=== PATIENT | female | born 1950 | race African-American/Black ===

== ENCOUNTER 2020-01-08 08:01 | Inpatient (IN) | payer MEDICARE, MEDICAID ==
[~2020-01-08] VITALS: Ht 172.7 cm; Wt 89.8 kg
[2020-01-08] MEDS ORDERED: EZET10TA13 PO (08:11)
[2020-01-08] MEDS ORDERED: ASPI-1497 PO (08:11)
[2020-01-08] MEDS ORDERED: RAMI10CA68 PO (08:11)
[2020-01-08] MEDS ORDERED: CHOL40002 PO (08:11)
[2020-01-08] MEDS ORDERED: FERR-71 PO (08:11)
[2020-01-08] MEDS ORDERED: AMLO10TA80 PO (08:11)
[2020-01-08] MEDS ORDERED: PRAV20TA57 PO (08:11)
[2020-01-08] MEDS ORDERED: PROPOFOL 10MG/ML 100ML 100 ML IV ONE (08:15)
[2020-01-08] MEDS ORDERED: METHYLPREDNISOLONE SOD SUCC 125 MG/2 ML VIAL IV ONE (08:15)
[2020-01-08] MEDS ORDERED: DIPHENHYDRAMINE 50MG/ML VIAL IV ONE (08:15)
[2020-01-08] MEDS ORDERED: SUCCINYLCHOLINE CHLORIDE 200MG/10ML IV ONE (08:15)
[2020-01-08] MEDS ORDERED: FAMOTIDINE 20MG/2ML VIAL IV ONE (08:15)
[2020-01-08] MEDS ORDERED: ETOMIDATE 2MG/ML 10ML VIAL IV ONE (08:15)
[2020-01-08 08:52] LABS: BASOPHILS % 0.6 % (0.0-2.0); LYMPHOCYTES % 27.5 % (20.0-50.0); MEAN CORPUSCULAR HEMOGLOBIN 22.8 pg (28.0-32.0); MEAN CORPUSCULAR VOLUME 74.9 fL (81.0-99.0); MONOCYTES % 6.6 % (2.0-8.0); NEUTROPHILS % 64.3 % (40.0-76.0); PLATELET 357 x1000/uL (130-400); RED BLOOD CELL COUNT 2.38 mill/uL (4.2-5.4)
[2020-01-08 08:53] LABS: CHLORIDE 112 mEq/L (98-107)
[2020-01-08] MEDS ORDERED: FENTANYL CITRATE/PF 50MCG/ML 2ML VIAL IV ONE (09:00)
[2020-01-08 09:07] LABS: INR 0.9; PROTHROMBIN TIME 9.8 sec (9.6-11.0)
[2020-01-08 09:15] LABS: HEMATOCRIT. 17.8 % (36.0-48.0); HEMOGLOBIN. 5.4 g/dL (12.0-16.0)
[2020-01-08] MEDS ORDERED: FENTANYL CITRATE/PF 1,000 MCG in SODIUM CHLORIDE 0.9% 80 ML IV PRN (09:15)
[2020-01-08 10:19] LABS: BG BASE EXCESS -10.9 mmol/L (-2.0-2.0); BG CARBOXYHEMOGLOBIN 1.3 % (0.5-1.5); BG DEOXYHEMOGLOBIN 0.2 % (0.0-5.0); BG FRACTION INSPIRED OXYGEN 100; BG HCO3 ACT 15.7 mmol/L (22.0-26.0); BG METHEMOGLOBIN 0.2 % (0.0-1.5); BG OXYGEN SATURATION 99.8 % (92.0-98.5); BG OXYHEMOGLOBIN 98.3 % (94.0-97.0); BG PCO2 38.5 mmHg (35.0-45.0); BG PH 7.227 (7.350-7.450); BG PO2 377.9 mmHg (75.0-100.0); BG SAMPLE SITE RIGHT BRACHIAL; BG TIDAL VOLUME(mL) 500 mL; BG TOTAL HEMOGLOBIN 4.8 g/dL (12.0-18.0); BG VENT MODE VENT - A/C; BG VENT RATE 12 set
[2020-01-08] MEDS ORDERED: MIDAZOLAM HCL 50 MG in DEXTROSE 5% WATER 40 ML IV ONE (10:30)
[2020-01-08 12:19] LABS: CLARITY URINE CLEAR (CLEAR); KETONES URINE NEGATIVE (NEGATIVE); LEUKOCYTE ESTERASE URINE NEGATIVE (NEGATIVE); NITRITE URINE NEGATIVE (NEGATIVE); OCCULT BLOOD URINE TRACE (NEGATIVE); PH URINE 5.5 (4.5-8.0); PROTEIN URINE 1+ (NEGATIVE); SPECIFIC GRAVITY URINE 1.007 (1.005-1.030); UROBILINOGEN URINE 0.2 E.U./dL (0.2-1.0)
[2020-01-08 12:20] LABS: COLOR URINE PALE YELLOW (YELLOW)
[2020-01-08] MEDS ORDERED: ONDANSETRON HCL 4MG/2ML INJ IV PRN (17:00)
[2020-01-08 17:31] LABS: BG BASE EXCESS -10.7 mmol/L (-2.0-2.0); BG CARBOXYHEMOGLOBIN 0.2 % (0.5-1.5); BG DEOXYHEMOGLOBIN 0.7 % (0.0-5.0); BG FRACTION INSPIRED OXYGEN 60; BG HCO3 ACT 16.3 mmol/L (22.0-26.0); BG METHEMOGLOBIN 0.3 % (0.0-1.5); BG OXYGEN SATURATION 99.3 % (92.0-98.5); BG OXYHEMOGLOBIN 98.8 % (94.0-97.0); BG PCO2 41.9 mmHg (35.0-45.0); BG PH 7.207 (7.350-7.450); BG PO2 171.6 mmHg (75.0-100.0); BG SAMPLE SITE RIGHT BRACHIAL; BG TIDAL VOLUME(mL) 500 mL; BG VENT MODE VENT - A/C; BG VENT RATE 12 set
[2020-01-08] MEDS: DIPHENHYDRAMINE 50MG/ML VIAL IV SCH ×2 (17:35→23:00)
[2020-01-08] MEDS: DEXAMETHASONE 4MG/ML 1ML VIAL IV SCH (17:35)
[2020-01-08] MEDS: SODIUM CHLORIDE 0.9% 1,000 ML IV SCH (17:48)
[2020-01-08 17:49] LABS: TOTAL IRON BINDING CAPACITY 459 ug/dL (250-450)
[2020-01-08 20:16] LABS: HEMATOCRIT 18.6 % (36.0-48.0); HEMOGLOBIN 5.7 g/dL (12.0-16.0)
[2020-01-08] MEDS: FAMOTIDINE 20MG/2ML VIAL IV SCH (21:00)
[2020-01-08] MEDS ORDERED: MIDAZOLAM HCL 50 MG in DEXTROSE 5% WATER 40 ML IV NR (21:15)
[2020-01-09] VITALS (51 sets, daily range): BP systolic 127–230; BP diastolic 69–113
[2020-01-09] MEDS: DEXAMETHASONE 4MG/ML 1ML VIAL IV SCH ×5 (00:05→23:13)
[2020-01-09] MEDS: SODIUM CHLORIDE 0.9% 1,000 ML IV SCH ×4 (00:47→23:14)
[2020-01-09 05:42] LABS: MEAN CORPUSCULAR HEMOGLOBIN 25.7 pg (28.0-32.0); MEAN PLATELET VOLUME 7.4 fl (7.4-10.4); PLATELET 240 x1000/uL (130-400); RED BLOOD CELL COUNT 2.58 mill/uL (4.2-5.4); RED CELL DISTRIBUTION WIDTH 22.6 % (11.6-14.6)
[2020-01-09 06:09] LABS: HEMATOCRIT. 20.9 % (36.0-48.0); HEMOGLOBIN. 6.6 g/dL (12.0-16.0)
[2020-01-09] MEDS ORDERED: SODIUM BICARBONATE 8.4% 1 MEQ/ML 50ML SYR IV STA (06:32)
[2020-01-09] MEDS ORDERED: DEXTROSE 50% WATER 50ML SYRINGE IV STA (06:32)
[2020-01-09] MEDS ORDERED: SODIUM POLYSTYRENE SULFONATE 15 G/60 ML BOT PO STA (06:32)
[2020-01-09] MEDS ORDERED: INSULIN REGULAR (HUMULIN R) 300UNITS/3ML IV ONE ×2 (06:45→12:15)
[2020-01-09] MEDS: PIPERACILLIN/TAZOBACTAM 2.25 G in DEXTROSE 5% WATER 50 ML IV SCH ×4 (07:30→23:14)
[2020-01-09] MEDS: DIPHENHYDRAMINE 50MG/ML VIAL IV SCH ×4 (08:00→23:13)
[2020-01-09 08:40] LABS: PLATELET ESTIMATE NORMAL
[2020-01-09] MEDS ORDERED: DEXTROSE 50% WATER 50ML SYRINGE IV PRN (12:00)
[2020-01-09] MEDS ORDERED: MIDAZOLAM HCL 100 MG in DEXT 5% WATER 80 ML IV PRN (12:00)
[2020-01-09] MEDS ORDERED: INSULIN REGULAR (HUMULIN R) 300UNITS/3ML IV SCH (12:15)
[2020-01-09] MEDS: CITRIC ACID/SODIUM CITRATE SOLN 30ML UDC PO SCH ×2 (12:20→18:05)
[2020-01-09] MEDS: INSULIN LISPRO 100 UNITS/ML SUBCUT SCH ×3 (12:28→21:00)
[2020-01-09] MEDS: BLOOD SUGAR DIAGNOSTIC STRIP TEST SCH ×3 (12:28→20:39)
[2020-01-09] MEDS: MIDAZOLAM HCL 50 MG in DEXTROSE 5% WATER 40 ML IV NR ×2 (12:50→16:09)
[2020-01-09] MEDS ORDERED: SODIUM POLYSTYRENE SULFONATE 15 G/60 ML BOT PR SCH (13:00)
[2020-01-09 13:39] LABS: BG BASE EXCESS -10.3 mmol/L (-2.0-2.0); BG CARBOXYHEMOGLOBIN 0.1 % (0.5-1.5); BG DEOXYHEMOGLOBIN 3.2 % (0.0-5.0); BG HCO3 ACT 15.6 mmol/L (22.0-26.0); BG METHEMOGLOBIN 0.3 % (0.0-1.5); BG OXYGEN SATURATION 96.8 % (92.0-98.5); BG OXYHEMOGLOBIN 96.4 % (94.0-97.0); BG PCO2 34.6 mmHg (35.0-45.0); BG PH 7.273 (7.350-7.450); BG PO2 94.7 mmHg (75.0-100.0); BG SAMPLE SITE RIGHT RADIAL; BG TIDAL VOLUME(mL) 500 mL; BG VENT MODE VENT - A/C; BG VENT RATE 18 set
[2020-01-09] MEDS: IPRATROPIUM/ALBUTEROL 0.5-3(2.5)MG/3ML NEB HHN SCH ×2 (16:06→20:39)
[2020-01-09] MEDS: FENTANYL CITRATE/PF 1,000 MCG in SODIUM CHLORIDE 0.9% 80 ML IV PRN (16:10)
[2020-01-09 18:15] LABS: HEMATOCRIT 26.4 % (36.0-48.0); HEMOGLOBIN 8.2 g/dL (12.0-16.0)
[2020-01-09] MEDS: FAMOTIDINE 20MG/2ML VIAL IV SCH (20:39)
[2020-01-09 23:24] LABS: HEMATOCRIT 25.1 % (36.0-48.0); HEMOGLOBIN 7.9 g/dL (12.0-16.0)
[2020-01-10] VITALS (62 sets, daily range): BP systolic 124–183; BP diastolic 74–100
[2020-01-10] MEDS: IPRATROPIUM/ALBUTEROL 0.5-3(2.5)MG/3ML NEB HHN SCH ×6 (00:17→20:06)
[2020-01-10] MEDS: MIDAZOLAM HCL 50 MG in DEXTROSE 5% WATER 40 ML IV PRN ×2 (01:32→12:40)
[2020-01-10] MEDS ORDERED: ALEN70TA68 MT (03:07)
[2020-01-10] MEDS ORDERED: FERR325T30 PO (03:07)
[2020-01-10 04:47] LABS: HEMATOCRIT. 26.5 % (36.0-48.0); HEMOGLOBIN. 8.4 g/dL (12.0-16.0); MEAN CORPUSCULAR VOLUME 82.4 fL (81.0-99.0); MEAN PLATELET VOLUME 8.8 fl (7.4-10.4); PLATELET 189 x1000/uL (130-400); RED BLOOD CELL COUNT 3.22 mill/uL (4.2-5.4); RED CELL DISTRIBUTION WIDTH 21.7 % (11.6-14.6)
[2020-01-10] MEDS: HYDRALAZINE 20MG/ML VIAL IV PRN ×2 (04:51→13:31)
[2020-01-10] MEDS: DIPHENHYDRAMINE 50MG/ML VIAL IV SCH ×4 (04:52→23:50)
[2020-01-10] MEDS: PIPERACILLIN/TAZOBACTAM 2.25 G in DEXTROSE 5% WATER 50 ML IV SCH ×2 (05:01→11:04)
[2020-01-10] MEDS: DEXAMETHASONE 4MG/ML 1ML VIAL IV SCH ×4 (05:01→23:50)
[2020-01-10] MEDS ORDERED: SODIUM POLYSTYRENE SULFONATE 15 G/60 ML BOT PO NR (06:00)
[2020-01-10] MEDS: SODIUM CHLORIDE 0.9% 1,000 ML IV SCH ×2 (06:16→16:59)
[2020-01-10] MEDS: INSULIN LISPRO 100 UNITS/ML SUBCUT SCH ×4 (08:20→21:00)
[2020-01-10] MEDS: BLOOD SUGAR DIAGNOSTIC STRIP TEST SCH ×4 (08:36→21:25)
[2020-01-10 09:13] LABS: BG BASE EXCESS -8.4 mmol/L (-2.0-2.0); BG CARBOXYHEMOGLOBIN 0.3 % (0.5-1.5); BG DEOXYHEMOGLOBIN 2.2 % (0.0-5.0); BG FRACTION INSPIRED OXYGEN 50; BG HCO3 ACT 16.9 mmol/L (22.0-26.0); BG METHEMOGLOBIN 0.2 % (0.0-1.5); BG OXYGEN SATURATION 97.8 % (92.0-98.5); BG OXYHEMOGLOBIN 97.3 % (94.0-97.0); BG PCO2 33.6 mmHg (35.0-45.0); BG PH 7.319 (7.350-7.450); BG SAMPLE SITE RIGHT RADIAL; BG TIDAL VOLUME(mL) 500 mL; BG TOTAL HEMOGLOBIN 8.6 g/dL (12.0-18.0); BG VENT MODE VENT - A/C; BG VENT RATE 18 set
[2020-01-10] MEDS: CITRIC ACID/SODIUM CITRATE SOLN 30ML UDC PO SCH ×3 (09:47→16:59)
[2020-01-10] MEDS: FENTANYL CITRATE/PF 1,000 MCG in SODIUM CHLORIDE 0.9% 80 ML IV PRN (09:49)
[2020-01-10] MEDS: IRON SUCROSE COMPLEX 100 MG/5 ML ML IV SCH (12:39)
[2020-01-10 13:08] LABS: NUCLEATED RED BLOOD CELLS 2 /100 WBC; PLATELET ESTIMATE NORMAL
[2020-01-10] MEDS: PIPERACILLIN/TAZOBACTAM 3.375 G in DEXT 5% WATER 100 ML IV SCH ×2 (17:00→23:51)
[2020-01-10] MEDS: FAMOTIDINE 20MG/2ML VIAL IV SCH (21:25)
[2020-01-10] MEDS: MIDAZOLAM HCL 100 MG in DEXT 5% WATER 80 ML IV PRN (23:52)
[2020-01-11] VITALS (90 sets, daily range): BP systolic 130–187; BP diastolic 71–156
[2020-01-11] MEDS: IPRATROPIUM/ALBUTEROL 0.5-3(2.5)MG/3ML NEB HHN SCH ×6 (00:34→20:27)
[2020-01-11] MEDS: SODIUM CHLORIDE 0.9% 1,000 ML IV SCH ×2 (02:17→08:47)
[2020-01-11] MEDS: HYDRALAZINE 20MG/ML VIAL IV PRN ×2 (02:18→22:23)
[2020-01-11] MEDS: DEXAMETHASONE 4MG/ML 1ML VIAL IV SCH ×3 (05:13→18:34)
[2020-01-11] MEDS: DIPHENHYDRAMINE 50MG/ML VIAL IV SCH ×4 (05:13→22:23)
[2020-01-11] MEDS: PIPERACILLIN/TAZOBACTAM 3.375 G in DEXT 5% WATER 100 ML IV SCH ×3 (05:14→18:34)
[2020-01-11 06:05] LABS: HEMATOCRIT. 27.9 % (36.0-48.0); HEMOGLOBIN. 8.9 g/dL (12.0-16.0); MEAN CORPUSCULAR HEMOGLOBIN 25.5 pg (28.0-32.0); MEAN CORPUSCULAR VOLUME 79.9 fL (81.0-99.0); MEAN PLATELET VOLUME 8.9 fl (7.4-10.4); PLATELET 184 x1000/uL (130-400); RED BLOOD CELL COUNT 3.49 mill/uL (4.2-5.4); RED CELL DISTRIBUTION WIDTH 22.2 % (11.6-14.6)
[2020-01-11 07:16] LABS: NUCLEATED RED BLOOD CELLS 4 /100 WBC; PLATELET ESTIMATE NORMAL
[2020-01-11] MEDS: BLOOD SUGAR DIAGNOSTIC STRIP TEST SCH ×4 (07:41→21:06)
[2020-01-11] MEDS ORDERED: POTASSIUM CHLORIDE 10MEQ TABLET SR PO SCH (08:00)
[2020-01-11] MEDS: INSULIN LISPRO 100 UNITS/ML SUBCUT SCH ×4 (08:20→21:00)
[2020-01-11] MEDS: IRON SUCROSE COMPLEX 100 MG/5 ML ML IV SCH (09:56)
[2020-01-11] MEDS: CITRIC ACID/SODIUM CITRATE SOLN 30ML UDC PO SCH (09:59)
[2020-01-11] MEDS: FENTANYL CITRATE/PF 1,000 MCG in SODIUM CHLORIDE 0.9% 80 ML IV PRN (10:07)
[2020-01-11 10:09] LABS: BG BASE EXCESS -1.8 mmol/L (-2.0-2.0); BG CARBOXYHEMOGLOBIN 0.2 % (0.5-1.5); BG FRACTION INSPIRED OXYGEN 40; BG METHEMOGLOBIN 0.2 % (0.0-1.5); BG OXYHEMOGLOBIN 95.6 % (94.0-97.0); BG PCO2 28.6 mmHg (35.0-45.0); BG PH 7.484 (7.350-7.450); BG PO2 85.6 mmHg (75.0-100.0); BG SAMPLE SITE RIGHT RADIAL; BG TIDAL VOLUME(mL) 500 mL; BG TOTAL HEMOGLOBIN 8.8 g/dL (12.0-18.0); BG VENT MODE VENT - A/C; BG VENT RATE 18 set
[2020-01-11] MEDS: CLONIDINE 0.1MG TABLET PO PRN (18:28)
[2020-01-11] MEDS: MIDAZOLAM HCL 100 MG in DEXT 5% WATER 80 ML IV PRN (18:30)
[2020-01-11] MEDS: FAMOTIDINE 20MG/2ML VIAL IV SCH (21:06)
[2020-01-12] VITALS (80 sets, daily range): BP systolic 113–174; BP diastolic 69–115
[2020-01-12] MEDS: DEXAMETHASONE 4MG/ML 1ML VIAL IV SCH ×5 (00:13→23:23)
[2020-01-12] MEDS: PIPERACILLIN/TAZOBACTAM 3.375 G in DEXT 5% WATER 100 ML IV SCH ×5 (00:13→23:24)
[2020-01-12] MEDS: IPRATROPIUM/ALBUTEROL 0.5-3(2.5)MG/3ML NEB HHN SCH ×6 (00:19→20:28)
[2020-01-12] MEDS: DIPHENHYDRAMINE 50MG/ML VIAL IV SCH ×4 (05:08→23:23)
[2020-01-12] MEDS: HYDRALAZINE 20MG/ML VIAL IV PRN ×2 (05:14→17:56)
[2020-01-12] MEDS: FENTANYL CITRATE/PF 1,000 MCG in SODIUM CHLORIDE 0.9% 80 ML IV PRN ×2 (06:24→18:17)
[2020-01-12] MEDS ORDERED: LIDOCAINE HCL 1% 20ML VIAL (Pyxis) INJ ONE (07:16)
[2020-01-12] MEDS: BLOOD SUGAR DIAGNOSTIC STRIP TEST SCH ×4 (08:00→21:05)
[2020-01-12] MEDS: INSULIN LISPRO 100 UNITS/ML SUBCUT SCH ×4 (08:20→21:00)
[2020-01-12] MEDS: IRON SUCROSE COMPLEX 100 MG/5 ML ML IV SCH (08:45)
[2020-01-12] MEDS: MIDAZOLAM HCL 100 MG in DEXT 5% WATER 80 ML IV PRN (11:05)
[2020-01-12] MEDS ORDERED: POTASSIUM CHLORIDE 20MEQ/PACKET NG NR (11:30)
[2020-01-12] MEDS: FAMOTIDINE 20MG/2ML VIAL IV SCH (21:05)
[2020-01-13] VITALS (94 sets, daily range): BP systolic 92–164; BP diastolic 61–111
[2020-01-13] MEDS: IPRATROPIUM/ALBUTEROL 0.5-3(2.5)MG/3ML NEB HHN SCH ×6 (00:28→20:50)
[2020-01-13] MEDS: MIDAZOLAM HCL 100 MG in DEXT 5% WATER 80 ML IV PRN ×3 (00:40→23:53)
[2020-01-13] MEDS: DIPHENHYDRAMINE 50MG/ML VIAL IV SCH ×4 (05:23→23:34)
[2020-01-13] MEDS: PIPERACILLIN/TAZOBACTAM 3.375 G in DEXT 5% WATER 100 ML IV SCH (05:23)
[2020-01-13] MEDS: DEXAMETHASONE 4MG/ML 1ML VIAL IV SCH ×4 (05:23→23:50)
[2020-01-13] MEDS: FENTANYL CITRATE/PF 1,000 MCG in SODIUM CHLORIDE 0.9% 80 ML IV PRN ×2 (06:08→20:57)
[2020-01-13 06:37] LABS: HEMATOCRIT. 30.6 % (36.0-48.0); HEMOGLOBIN. 9.7 g/dL (12.0-16.0); MEAN CORPUSCULAR HEMOGLOBIN 25.7 pg (28.0-32.0); MEAN CORPUSCULAR VOLUME 80.8 fL (81.0-99.0); MEAN PLATELET VOLUME 9.1 fl (7.4-10.4); PLATELET 218 x1000/uL (130-400); RED BLOOD CELL COUNT 3.79 mill/uL (4.2-5.4); RED CELL DISTRIBUTION WIDTH 23.6 % (11.6-14.6)
[2020-01-13] MEDS: BLOOD SUGAR DIAGNOSTIC STRIP TEST SCH ×4 (07:50→20:55)
[2020-01-13] MEDS: INSULIN LISPRO 100 UNITS/ML SUBCUT SCH ×4 (08:20→20:55)
[2020-01-13 10:02] LABS: BG BASE EXCESS -4.7 mmol/L (-2.0-2.0); BG CARBOXYHEMOGLOBIN 0.3 % (0.5-1.5); BG DEOXYHEMOGLOBIN 6.7 % (0.0-5.0); BG FRACTION INSPIRED OXYGEN 40; BG HCO3 ACT 20.2 mmol/L (22.0-26.0); BG METHEMOGLOBIN 0.1 % (0.0-1.5); BG OXYGEN SATURATION 93.3 % (92.0-98.5); BG OXYHEMOGLOBIN 92.9 % (94.0-97.0); BG PCO2 36.2 mmHg (35.0-45.0); BG PH 7.364 (7.350-7.450); BG PO2 74.2 mmHg (75.0-100.0); BG SAMPLE SITE RIGHT RADIAL; BG TIDAL VOLUME(mL) 500 mL; BG VENT MODE VENT - A/C; BG VENT RATE 12 set
[2020-01-13 10:21] LABS: NUCLEATED RED BLOOD CELLS 3 /100 WBC
[2020-01-13 10:22] LABS: PLATELET ESTIMATE NORMAL
[2020-01-13 11:53] LABS: CREATINE KINASE 212 IU/L (26-192)
[2020-01-13] MEDS: PIPERACILLIN/TAZOBACTAM 2.25 G in DEXTROSE 5% WATER 50 ML IV SCH ×3 (12:03→23:50)
[2020-01-13] MEDS: FAMOTIDINE 20MG/2ML VIAL IV SCH (20:56)
[2020-01-14] VITALS (63 sets, daily range): BP systolic 110–173; BP diastolic 69–112
[2020-01-14] MEDS: IPRATROPIUM/ALBUTEROL 0.5-3(2.5)MG/3ML NEB HHN SCH ×4 (00:35→20:41)
[2020-01-14] MEDS: PIPERACILLIN/TAZOBACTAM 2.25 G in DEXTROSE 5% WATER 50 ML IV SCH ×3 (05:47→17:50)
[2020-01-14] MEDS: DIPHENHYDRAMINE 50MG/ML VIAL IV SCH ×4 (05:47→23:29)
[2020-01-14] MEDS: DEXAMETHASONE 4MG/ML 1ML VIAL IV SCH ×4 (05:47→23:29)
[2020-01-14] MEDS: FENTANYL CITRATE/PF 1,000 MCG in SODIUM CHLORIDE 0.9% 80 ML IV PRN ×2 (05:53→16:06)
[2020-01-14 06:15] LABS: HEMATOCRIT. 27.7 % (36.0-48.0); MEAN CORPUSCULAR HEMOGLOBIN 26.4 pg (28.0-32.0); MEAN CORPUSCULAR VOLUME 81.3 fL (81.0-99.0); MEAN PLATELET VOLUME 9.1 fl (7.4-10.4); RED CELL DISTRIBUTION WIDTH 24.1 % (11.6-14.6)
[2020-01-14] MEDS: INSULIN LISPRO 100 UNITS/ML SUBCUT SCH ×4 (08:20→21:00)
[2020-01-14] MEDS ORDERED: SODIUM POLYSTYRENE SULFONATE 15 G/60 ML BOT PO SCH (09:00)
[2020-01-14 09:01] LABS: NUCLEATED RED BLOOD CELLS 1 /100 WBC; PLATELET ESTIMATE NORMAL
[2020-01-14 09:04] LABS: PLATELET 192 x1000/uL (130-400)
[2020-01-14] MEDS: BLOOD SUGAR DIAGNOSTIC STRIP TEST SCH ×4 (10:15→21:39)
[2020-01-14] MEDS: MIDAZOLAM HCL 100 MG in DEXT 5% WATER 80 ML IV PRN (10:17)
[2020-01-14] MEDS: METOCLOPRAMIDE HCL 10MG/2ML VIAL IV SCH ×3 (11:32→23:29)
[2020-01-14] MEDS: HALOPERIDOL LACTATE 5MG/ML VIAL IM PRN (15:05)
[2020-01-14] MEDS: CLONIDINE 0.1MG TABLET PO PRN (16:30)
[2020-01-14] MEDS: FAMOTIDINE 20MG/2ML VIAL IV SCH (21:39)
[2020-01-15] VITALS (43 sets, daily range): BP systolic 121–180; BP diastolic 69–124
[2020-01-15] MEDS: IPRATROPIUM/ALBUTEROL 0.5-3(2.5)MG/3ML NEB HHN SCH ×5 (00:20→15:50)
[2020-01-15] MEDS: DIPHENHYDRAMINE 50MG/ML VIAL IV SCH ×4 (05:59→23:26)
[2020-01-15] MEDS: MIDAZOLAM HCL 100 MG in DEXT 5% WATER 80 ML IV PRN ×2 (06:05→17:34)
[2020-01-15] MEDS: FENTANYL CITRATE/PF 1,000 MCG in SODIUM CHLORIDE 0.9% 80 ML IV PRN ×2 (06:07→17:35)
[2020-01-15] MEDS: DEXAMETHASONE 4MG/ML 1ML VIAL IV SCH ×4 (06:10→23:26)
[2020-01-15] MEDS: METOCLOPRAMIDE HCL 10MG/2ML VIAL IV SCH ×4 (06:10→23:26)
[2020-01-15] MEDS: BLOOD SUGAR DIAGNOSTIC STRIP TEST SCH ×4 (07:48→20:30)
[2020-01-15] MEDS: INSULIN LISPRO 100 UNITS/ML SUBCUT SCH ×4 (07:48→21:00)
[2020-01-15 08:49] LABS: HEMATOCRIT. 29.6 % (36.0-48.0); HEMOGLOBIN. 9.3 g/dL (12.0-16.0); MEAN CORPUSCULAR HEMOGLOBIN 25.4 pg (28.0-32.0); MEAN CORPUSCULAR VOLUME 80.9 fL (81.0-99.0); MEAN PLATELET VOLUME 9.1 fl (7.4-10.4); PLATELET 207 x1000/uL (130-400); RED BLOOD CELL COUNT 3.65 mill/uL (4.2-5.4); RED CELL DISTRIBUTION WIDTH 24.2 % (11.6-14.6)
[2020-01-15 09:30] LABS: PLATELET ESTIMATE NORMAL
[2020-01-15] MEDS ORDERED: SODIUM POLYSTYRENE SULFONATE 15 G/60 ML BOT PO SCH (10:00)
[2020-01-15] MEDS: CLONIDINE 0.1MG TABLET PO PRN (14:51)
[2020-01-15] MEDS: HYDRALAZINE 20MG/ML VIAL IV PRN (15:26)
[2020-01-15] MEDS: HALOPERIDOL LACTATE 5MG/ML VIAL IM PRN (17:28)
[2020-01-15] MEDS: AMLODIPINE 10MG TABLET PO SCH (18:28)
[2020-01-15] MEDS ORDERED: HYDRALAZINE 20MG/ML VIAL IV NR (18:30)
[2020-01-15] MEDS: FAMOTIDINE 20MG/2ML VIAL IV SCH (20:30)
[2020-01-16] VITALS (48 sets, daily range): BP systolic 119–189; BP diastolic 69–104
[2020-01-16] MEDS: FENTANYL CITRATE/PF 1,000 MCG in SODIUM CHLORIDE 0.9% 80 ML IV PRN ×3 (02:31→19:56)
[2020-01-16] MEDS: MIDAZOLAM HCL 50 MG in DEXTROSE 5% WATER 40 ML IV PRN ×2 (03:30→11:44)
[2020-01-16] MEDS: DIPHENHYDRAMINE 50MG/ML VIAL IV SCH ×4 (05:11→23:33)
[2020-01-16] MEDS: METOCLOPRAMIDE HCL 10MG/2ML VIAL IV SCH ×4 (05:11→23:33)
[2020-01-16] MEDS: DEXAMETHASONE 4MG/ML 1ML VIAL IV SCH ×4 (05:11→23:32)
[2020-01-16 05:46] LABS: HEMATOCRIT. 29.6 % (36.0-48.0); HEMOGLOBIN. 9.3 g/dL (12.0-16.0); MEAN CORPUSCULAR HEMOGLOBIN 25.7 pg (28.0-32.0); MEAN CORPUSCULAR VOLUME 82.2 fL (81.0-99.0); MEAN PLATELET VOLUME 9.1 fl (7.4-10.4); PLATELET 195 x1000/uL (130-400); RED CELL DISTRIBUTION WIDTH 23.9 % (11.6-14.6)
[2020-01-16 07:35] LABS: PLATELET ESTIMATE NORMAL
[2020-01-16] MEDS: BLOOD SUGAR DIAGNOSTIC STRIP TEST SCH ×4 (07:50→23:33)
[2020-01-16] MEDS: IPRATROPIUM/ALBUTEROL 0.5-3(2.5)MG/3ML NEB HHN SCH ×5 (07:51→23:50)
[2020-01-16] MEDS: INSULIN LISPRO 100 UNITS/ML SUBCUT SCH ×3 (08:20→18:00)
[2020-01-16] MEDS: AMLODIPINE 10MG TABLET PO SCH (09:16)
[2020-01-16 09:48] LABS: BG BASE EXCESS 0.5 mmol/L (-2.0-2.0); BG CARBOXYHEMOGLOBIN 0.3 % (0.5-1.5); BG FRACTION INSPIRED OXYGEN 40; BG HCO3 ACT 25.8 mmol/L (22.0-26.0); BG METHEMOGLOBIN 0.3 % (0.0-1.5); BG OXYHEMOGLOBIN 91.4 % (94.0-97.0); BG PCO2 44.8 mmHg (35.0-45.0); BG PH 7.379 (7.350-7.450); BG PO2 68.9 mmHg (75.0-100.0); BG PRESSURE SUPPORT 10; BG SAMPLE SITE RIGHT RADIAL; BG TIDAL VOLUME(mL) 500 mL; BG VENT MODE VENT - SIMV; BG VENT RATE 12 set
[2020-01-16] MEDS: HYDRALAZINE 20MG/ML VIAL IV PRN (12:55)
[2020-01-16] MEDS: MIDAZOLAM HCL 100 MG in DEXT 5% WATER 80 ML IV PRN ×2 (15:04→19:56)
[2020-01-16] MEDS: FAMOTIDINE 20MG/2ML VIAL IV SCH (20:27)
[2020-01-17] VITALS (52 sets, daily range): BP systolic 111–189; BP diastolic 68–113
[2020-01-17] MEDS: IPRATROPIUM/ALBUTEROL 0.5-3(2.5)MG/3ML NEB HHN SCH ×6 (04:10→20:45)
[2020-01-17] MEDS: METOCLOPRAMIDE HCL 10MG/2ML VIAL IV SCH ×4 (05:18→23:00)
[2020-01-17] MEDS: DEXAMETHASONE 4MG/ML 1ML VIAL IV SCH ×4 (05:18→23:00)
[2020-01-17] MEDS: DIPHENHYDRAMINE 50MG/ML VIAL IV SCH ×4 (05:19→23:01)
[2020-01-17] MEDS: BLOOD SUGAR DIAGNOSTIC STRIP TEST SCH ×4 (05:19→23:01)
[2020-01-17] MEDS: INSULIN LISPRO 100 UNITS/ML SUBCUT SCH ×4 (05:37→17:25)
[2020-01-17 06:07] LABS: HEMATOCRIT. 33.2 % (36.0-48.0); HEMOGLOBIN. 10.4 g/dL (12.0-16.0); MEAN CORPUSCULAR VOLUME 83.1 fL (81.0-99.0); MEAN PLATELET VOLUME 9.8 fl (7.4-10.4); PLATELET 186 x1000/uL (130-400); RED CELL DISTRIBUTION WIDTH 25.9 % (11.6-14.6)
[2020-01-17] MEDS: HYDRALAZINE 20MG/ML VIAL IV PRN (06:10)
[2020-01-17 07:01] LABS: NUCLEATED RED BLOOD CELLS 1 /100 WBC; PLATELET ESTIMATE NORMAL
[2020-01-17] MEDS: MIDAZOLAM HCL 100 MG in DEXT 5% WATER 80 ML IV PRN ×2 (08:18→18:52)
[2020-01-17] MEDS: FENTANYL CITRATE/PF 1,000 MCG in SODIUM CHLORIDE 0.9% 80 ML IV PRN ×2 (08:20→18:52)
[2020-01-17] MEDS: AMLODIPINE 10MG TABLET PO SCH (08:20)
[2020-01-17] MEDS: FAMOTIDINE 20MG/2ML VIAL IV SCH (20:19)
[2020-01-18] VITALS (51 sets, daily range): BP systolic 105–196; BP diastolic 66–126
[2020-01-18] MEDS: IPRATROPIUM/ALBUTEROL 0.5-3(2.5)MG/3ML NEB HHN SCH ×6 (00:23→20:50)
[2020-01-18] MEDS: METOCLOPRAMIDE HCL 10MG/2ML VIAL IV SCH ×4 (05:04→23:05)
[2020-01-18] MEDS: BLOOD SUGAR DIAGNOSTIC STRIP TEST SCH ×4 (05:04→23:05)
[2020-01-18] MEDS: DEXAMETHASONE 4MG/ML 1ML VIAL IV SCH ×3 (05:04→20:07)
[2020-01-18] MEDS: DIPHENHYDRAMINE 50MG/ML VIAL IV SCH ×4 (05:05→23:05)
[2020-01-18] MEDS: INSULIN LISPRO 100 UNITS/ML SUBCUT SCH ×5 (06:00→23:35)
[2020-01-18] MEDS: FENTANYL CITRATE/PF 1,000 MCG in SODIUM CHLORIDE 0.9% 80 ML IV PRN ×2 (06:07→18:35)
[2020-01-18 06:43] LABS: HEMOGLOBIN. 9.3 g/dL (12.0-16.0); MEAN CORPUSCULAR HEMOGLOBIN 25.7 pg (28.0-32.0); MEAN CORPUSCULAR VOLUME 82.8 fL (81.0-99.0); MEAN PLATELET VOLUME 9.3 fl (7.4-10.4); PLATELET 162 x1000/uL (130-400); RED BLOOD CELL COUNT 3.63 mill/uL (4.2-5.4); RED CELL DISTRIBUTION WIDTH 25.8 % (11.6-14.6)
[2020-01-18] MEDS: MIDAZOLAM HCL 100 MG in DEXT 5% WATER 80 ML IV PRN ×2 (07:38→23:16)
[2020-01-18] MEDS: AMLODIPINE 10MG TABLET PO SCH (09:03)
[2020-01-18] MEDS: DEXTROSE 5% WATER 1,000 ML IV SCH (10:43)
[2020-01-18 11:02] LABS: PLATELET ESTIMATE NORMAL
[2020-01-18] MEDS: CLONIDINE 0.1MG TABLET PO PRN (15:26)
[2020-01-18] MEDS: FAMOTIDINE 20MG/2ML VIAL IV SCH (20:07)
[2020-01-19] VITALS (51 sets, daily range): BP systolic 109–185; BP diastolic 61–111
[2020-01-19] MEDS: IPRATROPIUM/ALBUTEROL 0.5-3(2.5)MG/3ML NEB HHN SCH ×6 (00:38→20:09)
[2020-01-19] MEDS: METOCLOPRAMIDE HCL 10MG/2ML VIAL IV SCH ×4 (05:00→23:15)
[2020-01-19] MEDS: DIPHENHYDRAMINE 50MG/ML VIAL IV SCH ×4 (05:00→22:30)
[2020-01-19] MEDS: BLOOD SUGAR DIAGNOSTIC STRIP TEST SCH ×4 (05:00→23:15)
[2020-01-19 05:04] LABS: HEMATOCRIT. 30.7 % (36.0-48.0); HEMOGLOBIN. 9.7 g/dL (12.0-16.0); MEAN CORPUSCULAR HEMOGLOBIN 26.3 pg (28.0-32.0); MEAN CORPUSCULAR VOLUME 82.9 fL (81.0-99.0); RED CELL DISTRIBUTION WIDTH 26.2 % (11.6-14.6)
[2020-01-19] MEDS: INSULIN LISPRO 100 UNITS/ML SUBCUT SCH ×4 (05:09→23:15)
[2020-01-19 08:19] LABS: PLATELET ESTIMATE NORMAL
[2020-01-19 08:21] LABS: PLATELET 158 x1000/uL (130-400)
[2020-01-19 10:03] LABS: BG BASE EXCESS -3.1 mmol/L (-2.0-2.0); BG CARBOXYHEMOGLOBIN 0.2 % (0.5-1.5); BG DEOXYHEMOGLOBIN 3.5 % (0.0-5.0); BG FRACTION INSPIRED OXYGEN 50; BG HCO3 ACT 22.1 mmol/L (22.0-26.0); BG METHEMOGLOBIN 0.3 % (0.0-1.5); BG OXYGEN SATURATION 96.5 % (92.0-98.5); BG PCO2 40.1 mmHg (35.0-45.0); BG PH 7.359 (7.350-7.450); BG PO2 94.1 mmHg (75.0-100.0); BG PRESSURE SUPPORT 10; BG SAMPLE SITE RIGHT RADIAL; BG TIDAL VOLUME(mL) 500 mL; BG TOTAL HEMOGLOBIN 9.7 g/dL (12.0-18.0); BG VENT MODE VENT - SIMV; BG VENT RATE 12 set
[2020-01-19] MEDS: AMLODIPINE 10MG TABLET PO SCH (10:14)
[2020-01-19] MEDS: DEXAMETHASONE 4MG/ML 1ML VIAL IV SCH ×2 (10:14→20:47)
[2020-01-19] MEDS: DEXTROSE 5% WATER 1,000 ML IV SCH (10:14)
[2020-01-19] MEDS: HYDRALAZINE 20MG/ML VIAL IV PRN ×2 (12:43→20:47)
[2020-01-19] MEDS: MIDAZOLAM HCL 100 MG in DEXT 5% WATER 80 ML IV PRN (15:08)
[2020-01-19] MEDS: FENTANYL CITRATE/PF 1,000 MCG in SODIUM CHLORIDE 0.9% 80 ML IV PRN (15:08)
[2020-01-19] MEDS: FAMOTIDINE 20MG/2ML VIAL IV SCH (20:47)
[2020-01-20] VITALS (47 sets, daily range): BP systolic 107–164; BP diastolic 64–122
[2020-01-20] MEDS: IPRATROPIUM/ALBUTEROL 0.5-3(2.5)MG/3ML NEB HHN SCH ×6 (00:06→20:30)
[2020-01-20] MEDS: FENTANYL CITRATE/PF 1,000 MCG in SODIUM CHLORIDE 0.9% 80 ML IV PRN ×2 (03:06→18:12)
[2020-01-20] MEDS: BLOOD SUGAR DIAGNOSTIC STRIP TEST SCH ×4 (05:30→23:28)
[2020-01-20] MEDS: METOCLOPRAMIDE HCL 10MG/2ML VIAL IV SCH ×4 (05:30→23:50)
[2020-01-20] MEDS: DIPHENHYDRAMINE 50MG/ML VIAL IV SCH ×4 (05:30→22:09)
[2020-01-20] MEDS: INSULIN LISPRO 100 UNITS/ML SUBCUT SCH ×4 (05:31→23:28)
[2020-01-20 06:41] LABS: MEAN CORPUSCULAR HEMOGLOBIN 26.1 pg (28.0-32.0); MEAN CORPUSCULAR VOLUME 83.1 fL (81.0-99.0); MEAN PLATELET VOLUME 11.2 fl (7.4-10.4); RED BLOOD CELL COUNT 3.85 mill/uL (4.2-5.4); RED CELL DISTRIBUTION WIDTH 26.5 % (11.6-14.6)
[2020-01-20] MEDS: DEXAMETHASONE 4MG/ML 1ML VIAL IV SCH ×2 (08:03→20:56)
[2020-01-20] MEDS: AMLODIPINE 10MG TABLET PO SCH (08:03)
[2020-01-20] MEDS: DEXTROSE 5% WATER 1,000 ML IV SCH (08:03)
[2020-01-20 08:38] LABS: PLATELET 169 x1000/uL (130-400)
[2020-01-20] MEDS: MIDAZOLAM HCL 100 MG in DEXT 5% WATER 80 ML IV PRN (09:35)
[2020-01-20 09:51] LABS: BG BASE EXCESS -2.7 mmol/L (-2.0-2.0); BG CARBOXYHEMOGLOBIN 0.3 % (0.5-1.5); BG DEOXYHEMOGLOBIN 4.5 % (0.0-5.0); BG FRACTION INSPIRED OXYGEN 50; BG HCO3 ACT 21.7 mmol/L (22.0-26.0); BG METHEMOGLOBIN 0.6 % (0.0-1.5); BG OXYGEN SATURATION 95.5 % (92.0-98.5); BG OXYHEMOGLOBIN 94.6 % (94.0-97.0); BG PCO2 34.7 mmHg (35.0-45.0); BG PH 7.413 (7.350-7.450); BG PRESSURE SUPPORT 10; BG SAMPLE SITE RIGHT RADIAL; BG TIDAL VOLUME(mL) 500 mL; BG TOTAL HEMOGLOBIN 5.9 g/dL (12.0-18.0); BG VENT MODE VENT - SIMV; BG VENT RATE 12 set
[2020-01-20] MEDS: HALOPERIDOL LACTATE 5MG/ML VIAL IM PRN (18:12)
[2020-01-20] MEDS: ACETYLCYSTEINE 200MG/ML 20% VIAL 4ML INH SCH (20:30)
[2020-01-20] MEDS: FAMOTIDINE 20MG/2ML VIAL IV SCH (20:56)
[2020-01-21] VITALS (44 sets, daily range): BP systolic 90–171; BP diastolic 54–117
[2020-01-21] MEDS: IPRATROPIUM/ALBUTEROL 0.5-3(2.5)MG/3ML NEB HHN SCH ×6 (00:47→20:38)
[2020-01-21] MEDS: ACETYLCYSTEINE 200MG/ML 20% VIAL 4ML INH SCH ×3 (00:48→16:38)
[2020-01-21] MEDS: DAPTOMYCIN 500 MG in SODIUM CHLORIDE 0.9% 100 ML IV SCH (01:02)
[2020-01-21] MEDS: CEFEPIME 1,000 MG in DEXTROSE 5% WATER 50 ML IV SCH ×2 (02:07→12:55)
[2020-01-21] MEDS: HALOPERIDOL LACTATE 5MG/ML VIAL IM PRN ×3 (03:21→17:35)
[2020-01-21] MEDS: DIPHENHYDRAMINE 50MG/ML VIAL IV SCH ×4 (04:05→23:26)
[2020-01-21] MEDS: ACETAMINOPHEN 325MG TABLET PO PRN (04:05)
[2020-01-21] MEDS: BLOOD SUGAR DIAGNOSTIC STRIP TEST SCH ×4 (05:13→23:26)
[2020-01-21] MEDS: INSULIN LISPRO 100 UNITS/ML SUBCUT SCH ×4 (05:13→23:26)
[2020-01-21] MEDS: METOCLOPRAMIDE HCL 10MG/2ML VIAL IV SCH ×4 (05:17→23:26)
[2020-01-21 06:06] LABS: HEMATOCRIT. 30.4 % (36.0-48.0); HEMOGLOBIN. 9.6 g/dL (12.0-16.0); MEAN CORPUSCULAR HEMOGLOBIN 25.9 pg (28.0-32.0); MEAN CORPUSCULAR VOLUME 81.6 fL (81.0-99.0); RED BLOOD CELL COUNT 3.72 mill/uL (4.2-5.4)
[2020-01-21] MEDS: HYDRALAZINE 20MG/ML VIAL IV PRN (06:34)
[2020-01-21] MEDS: DEXTROSE 5% WATER 1,000 ML IV SCH (08:11)
[2020-01-21] MEDS: AMLODIPINE 10MG TABLET PO SCH (08:11)
[2020-01-21] MEDS: DEXAMETHASONE 4MG/ML 1ML VIAL IV SCH ×2 (08:11→20:55)
[2020-01-21] MEDS: FENTANYL CITRATE/PF 1,000 MCG in SODIUM CHLORIDE 0.9% 80 ML IV PRN (08:12)
[2020-01-21] MEDS: MIDAZOLAM HCL 100 MG in DEXT 5% WATER 80 ML IV PRN (08:14)
[2020-01-21 09:06] LABS: BG BASE EXCESS -2.3 mmol/L (-2.0-2.0); BG CARBOXYHEMOGLOBIN 0.2 % (0.5-1.5); BG DEOXYHEMOGLOBIN 3.1 % (0.0-5.0); BG FRACTION INSPIRED OXYGEN 50; BG METHEMOGLOBIN 0.1 % (0.0-1.5); BG OXYGEN SATURATION 96.9 % (92.0-98.5); BG OXYHEMOGLOBIN 96.6 % (94.0-97.0); BG PCO2 30.7 mmHg (35.0-45.0); BG PH 7.452 (7.350-7.450); BG PO2 85.5 mmHg (75.0-100.0); BG PRESSURE SUPPORT 10; BG SAMPLE SITE RIGHT RADIAL; BG TIDAL VOLUME(mL) 500 mL; BG TOTAL HEMOGLOBIN 10.3 g/dL (12.0-18.0); BG VENT MODE VENT - SIMV; BG VENT RATE 12 set
[2020-01-21 10:47] LABS: PLATELET ESTIMATE NORMAL
[2020-01-21] MEDS: LORAZEPAM 2MG/ML CPJ IV PRN (11:29)
[2020-01-21] MEDS ORDERED: FUROSEMIDE 40MG/4ML VIAL IVP NR (18:00)
[2020-01-21] MEDS: FAMOTIDINE 20MG/2ML VIAL IV SCH (20:55)
[2020-01-22] VITALS (48 sets, daily range): BP systolic 83–176; BP diastolic 47–93
[2020-01-22] MEDS: ACETYLCYSTEINE 200MG/ML 20% VIAL 4ML INH SCH ×4 (00:22→20:22)
[2020-01-22] MEDS: IPRATROPIUM/ALBUTEROL 0.5-3(2.5)MG/3ML NEB HHN SCH ×6 (00:24→20:22)
[2020-01-22] MEDS: DIPHENHYDRAMINE 50MG/ML VIAL IV SCH ×4 (00:25→17:31)
[2020-01-22] MEDS: DAPTOMYCIN 500 MG in SODIUM CHLORIDE 0.9% 100 ML IV SCH (01:07)
[2020-01-22] MEDS: LORAZEPAM 2MG/ML CPJ IV PRN ×4 (02:30→20:46)
[2020-01-22] MEDS: FENTANYL CITRATE/PF 1,000 MCG in SODIUM CHLORIDE 0.9% 80 ML IV PRN ×2 (02:55→15:01)
[2020-01-22] MEDS: METOCLOPRAMIDE HCL 10MG/2ML VIAL IV SCH ×3 (05:21→17:31)
[2020-01-22] MEDS: INSULIN LISPRO 100 UNITS/ML SUBCUT SCH ×3 (06:00→18:00)
[2020-01-22] MEDS: BLOOD SUGAR DIAGNOSTIC STRIP TEST SCH ×3 (06:01→18:00)
[2020-01-22 06:30] LABS: HEMATOCRIT. 30.4 % (36.0-48.0); HEMOGLOBIN. 9.6 g/dL (12.0-16.0); MEAN CORPUSCULAR HEMOGLOBIN 25.7 pg (28.0-32.0); MEAN CORPUSCULAR VOLUME 81.7 fL (81.0-99.0); RED BLOOD CELL COUNT 3.72 mill/uL (4.2-5.4); RED CELL DISTRIBUTION WIDTH 27.4 % (11.6-14.6)
[2020-01-22 06:55] LABS: T4 FREE 0.73 ng/dL (0.76-1.46)
[2020-01-22 07:37] LABS: PLATELET ESTIMATE NORMAL
[2020-01-22] MEDS: DEXAMETHASONE 4MG/ML 1ML VIAL IV SCH ×2 (09:29→20:46)
[2020-01-22] MEDS: CEFEPIME 2,000 MG in DEXT 5% WATER 100 ML IV SCH (09:30)
[2020-01-22] MEDS: AMLODIPINE 10MG TABLET PO SCH (09:30)
[2020-01-22] MEDS: DEXTROSE 5% WATER 1,000 ML IV SCH (12:19)
[2020-01-22] MEDS: FAMOTIDINE 20MG/2ML VIAL IV SCH (20:45)
[2020-01-23] VITALS (36 sets, daily range): BP systolic 82–176; BP diastolic 51–107
[2020-01-23] MEDS: BLOOD SUGAR DIAGNOSTIC STRIP TEST SCH ×5 (00:17→23:15)
[2020-01-23] MEDS: IPRATROPIUM/ALBUTEROL 0.5-3(2.5)MG/3ML NEB HHN SCH ×6 (00:21→20:40)
[2020-01-23] MEDS: DIPHENHYDRAMINE 50MG/ML VIAL IV SCH ×5 (00:28→23:14)
[2020-01-23] MEDS: FENTANYL CITRATE/PF 1,000 MCG in SODIUM CHLORIDE 0.9% 80 ML IV PRN ×3 (00:28→20:12)
[2020-01-23] MEDS: METOCLOPRAMIDE HCL 10MG/2ML VIAL IV SCH ×5 (00:28→23:14)
[2020-01-23] MEDS: DAPTOMYCIN 500 MG in SODIUM CHLORIDE 0.9% 100 ML IV SCH (01:11)
[2020-01-23] MEDS: LORAZEPAM 2MG/ML CPJ IV PRN ×5 (04:49→21:01)
[2020-01-23] MEDS: INSULIN LISPRO 100 UNITS/ML SUBCUT SCH ×5 (06:00→23:14)
[2020-01-23 06:22] LABS: HEMATOCRIT. 27.9 % (36.0-48.0); HEMOGLOBIN. 8.8 g/dL (12.0-16.0); MEAN CORPUSCULAR HEMOGLOBIN 25.6 pg (28.0-32.0); MEAN CORPUSCULAR VOLUME 81.2 fL (81.0-99.0); MEAN PLATELET VOLUME 10.9 fl (7.4-10.4); RED BLOOD CELL COUNT 3.44 mill/uL (4.2-5.4); RED CELL DISTRIBUTION WIDTH 27.6 % (11.6-14.6)
[2020-01-23] MEDS: ACETYLCYSTEINE 200MG/ML 20% VIAL 4ML INH SCH ×3 (07:44→20:51)
[2020-01-23] MEDS: CEFEPIME 2,000 MG in DEXT 5% WATER 100 ML IV SCH (08:33)
[2020-01-23] MEDS: DEXAMETHASONE 4MG/ML 1ML VIAL IV SCH ×2 (08:33→20:46)
[2020-01-23] MEDS: AMLODIPINE 10MG TABLET PO SCH (08:34)
[2020-01-23] MEDS ORDERED: HYDROCHLOROTHIAZIDE 12.5MG CAPSULE PO SCH (10:00)
[2020-01-23 10:03] LABS: PLATELET ESTIMATE INCREASED
[2020-01-23 10:06] LABS: PLATELET 195 x1000/uL (130-400)
[2020-01-23] MEDS: FUROSEMIDE 40MG TABLET PO SCH (10:27)
[2020-01-23 11:09] LABS: CREATINE KINASE 100 IU/L (26-192)
[2020-01-23 14:29] LABS: BG BASE EXCESS -4.1 mmol/L (-2.0-2.0); BG CARBOXYHEMOGLOBIN 0.3 % (0.5-1.5); BG FRACTION INSPIRED OXYGEN 40; BG HCO3 ACT 19.9 mmol/L (22.0-26.0); BG METHEMOGLOBIN 0.2 % (0.0-1.5); BG OXYGEN SATURATION 84.9 % (92.0-98.5); BG OXYHEMOGLOBIN 84.5 % (94.0-97.0); BG PCO2 32.5 mmHg (35.0-45.0); BG PH 7.405 (7.350-7.450); BG SAMPLE SITE RIGHT RADIAL; BG TIDAL VOLUME(mL) 500 mL; BG TOTAL HEMOGLOBIN 10.3 g/dL (12.0-18.0); BG VENT MODE VENT - A/C; BG VENT RATE 12 set
[2020-01-23] MEDS ORDERED: VANCOMYCIN 1500MG in DEXTROSE 5% WATER 250ML IV NR (18:00)
[2020-01-23] MEDS: CEFAZOLIN 1000MG PREMIX 50 ML IV SCH (20:46)
[2020-01-23] MEDS: FAMOTIDINE 20MG/2ML VIAL IV SCH (20:46)
[2020-01-24] VITALS (41 sets, daily range): BP systolic 80–182; BP diastolic 47–106
[2020-01-24] MEDS: ACETYLCYSTEINE 200MG/ML 20% VIAL 4ML INH SCH (00:34)
[2020-01-24] MEDS: IPRATROPIUM/ALBUTEROL 0.5-3(2.5)MG/3ML NEB HHN SCH ×6 (00:35→20:01)
[2020-01-24] MEDS: LORAZEPAM 2MG/ML CPJ IV PRN ×4 (03:24→22:41)
[2020-01-24] MEDS: METOCLOPRAMIDE HCL 10MG/2ML VIAL IV SCH ×4 (05:57→23:30)
[2020-01-24] MEDS: BLOOD SUGAR DIAGNOSTIC STRIP TEST SCH ×4 (05:57→23:30)
[2020-01-24] MEDS: DIPHENHYDRAMINE 50MG/ML VIAL IV SCH ×4 (05:57→22:29)
[2020-01-24] MEDS: INSULIN LISPRO 100 UNITS/ML SUBCUT SCH ×4 (06:00→23:30)
[2020-01-24 06:53] LABS: HEMATOCRIT. 28.2 % (36.0-48.0); HEMOGLOBIN. 8.6 g/dL (12.0-16.0); MEAN CORPUSCULAR VOLUME 82.1 fL (81.0-99.0); MEAN PLATELET VOLUME 11.3 fl (7.4-10.4); PLATELET 226 x1000/uL (130-400); RED BLOOD CELL COUNT 3.43 mill/uL (4.2-5.4); RED CELL DISTRIBUTION WIDTH 27.3 % (11.6-14.6)
[2020-01-24 08:12] LABS: PLATELET ESTIMATE NORMAL
[2020-01-24] MEDS: FUROSEMIDE 40MG TABLET PO SCH (08:27)
[2020-01-24] MEDS: AMLODIPINE 10MG TABLET PO SCH (08:27)
[2020-01-24] MEDS: DEXAMETHASONE 4MG/ML 1ML VIAL IV SCH ×2 (08:27→20:42)
[2020-01-24] MEDS: FENTANYL CITRATE/PF 1,000 MCG in SODIUM CHLORIDE 0.9% 80 ML IV PRN ×2 (08:29→15:39)
[2020-01-24] MEDS: CEFAZOLIN 1000MG PREMIX 50 ML IV SCH ×2 (10:31→20:42)
[2020-01-24] MEDS: DOCUSATE SODIUM SUGAR FREE 100MG/10ML UDC NG SCH (15:10)
[2020-01-24] MEDS ORDERED: DOXYCYCLINE 100 MG in DEXT 5% WATER 100 ML IV SCH (15:45)
[2020-01-24] MEDS: LINEZOLID 600 MG PREMIX 300 ML IV SCH (18:03)
[2020-01-24] MEDS: FAMOTIDINE 20MG/2ML VIAL IV SCH (20:42)
[2020-01-25] VITALS (56 sets, daily range): BP systolic 71–187; BP diastolic 42–98
[2020-01-25] MEDS: ACETYLCYSTEINE 200MG/ML 20% VIAL 4ML INH SCH ×4 (00:09→16:52)
[2020-01-25] MEDS: IPRATROPIUM/ALBUTEROL 0.5-3(2.5)MG/3ML NEB HHN SCH ×7 (00:09→23:53)
[2020-01-25] MEDS ORDERED: DAPTOMYCIN 500 MG in SODIUM CHLORIDE 0.9% 100 ML IV SCH (01:00)
[2020-01-25] MEDS: LORAZEPAM 2MG/ML CPJ IV PRN ×4 (02:34→19:47)
[2020-01-25] MEDS: FENTANYL CITRATE/PF 1,000 MCG in SODIUM CHLORIDE 0.9% 80 ML IV PRN ×2 (02:39→10:47)
[2020-01-25] MEDS: METOCLOPRAMIDE HCL 10MG/2ML VIAL IV SCH ×4 (05:54→23:33)
[2020-01-25] MEDS: DIPHENHYDRAMINE 50MG/ML VIAL IV SCH ×4 (05:55→23:33)
[2020-01-25] MEDS: BLOOD SUGAR DIAGNOSTIC STRIP TEST SCH ×3 (05:55→18:06)
[2020-01-25] MEDS: LINEZOLID 600 MG PREMIX 300 ML IV SCH ×2 (05:55→18:06)
[2020-01-25] MEDS: INSULIN LISPRO 100 UNITS/ML SUBCUT SCH ×3 (05:58→18:00)
[2020-01-25 06:24] LABS: HEMATOCRIT. 28.5 % (36.0-48.0); MEAN CORPUSCULAR HEMOGLOBIN 25.9 pg (28.0-32.0); MEAN PLATELET VOLUME 11.5 fl (7.4-10.4); RED BLOOD CELL COUNT 3.47 mill/uL (4.2-5.4); RED CELL DISTRIBUTION WIDTH 27.5 % (11.6-14.6)
[2020-01-25] MEDS: FUROSEMIDE 40MG TABLET PO SCH (08:23)
[2020-01-25] MEDS: DOCUSATE SODIUM SUGAR FREE 100MG/10ML UDC NG SCH (08:24)
[2020-01-25] MEDS: AMLODIPINE 10MG TABLET PO SCH (08:24)
[2020-01-25] MEDS: ENOXAPARIN 30MG/0.3ML SYR SUBCUT SCH (08:24)
[2020-01-25] MEDS: CEFAZOLIN 1000MG PREMIX 50 ML IV SCH ×2 (08:25→20:20)
[2020-01-25] MEDS: DEXAMETHASONE 4MG/ML 1ML VIAL IV SCH ×2 (08:25→20:20)
[2020-01-25 09:20] LABS: PLATELET ESTIMATE NORMAL
[2020-01-25 09:32] LABS: PLATELET 277 x1000/uL (130-400)
[2020-01-25] MEDS: FERROUS SULFATE 325MG TABLET PO SCH ×2 (13:22→18:14)
[2020-01-25] MEDS: FAMOTIDINE 20MG/2ML VIAL IV SCH (20:20)
[2020-01-26] VITALS (45 sets, daily range): BP systolic 82–169; BP diastolic 52–108
[2020-01-26] MEDS: FENTANYL CITRATE/PF 1,000 MCG in SODIUM CHLORIDE 0.9% 80 ML IV PRN ×2 (00:03→18:30)
[2020-01-26] MEDS: BLOOD SUGAR DIAGNOSTIC STRIP TEST SCH ×4 (00:04→18:19)
[2020-01-26] MEDS: IPRATROPIUM/ALBUTEROL 0.5-3(2.5)MG/3ML NEB HHN SCH ×5 (03:51→20:35)
[2020-01-26 05:46] LABS: HEMATOCRIT. 28.1 % (36.0-48.0); HEMOGLOBIN. 8.9 g/dL (12.0-16.0); MEAN CORPUSCULAR VOLUME 82.3 fL (81.0-99.0); PLATELET 283 x1000/uL (130-400); RED BLOOD CELL COUNT 3.42 mill/uL (4.2-5.4); RED CELL DISTRIBUTION WIDTH 27.6 % (11.6-14.6)
[2020-01-26] MEDS: INSULIN LISPRO 100 UNITS/ML SUBCUT SCH ×4 (06:00→18:00)
[2020-01-26] MEDS: METOCLOPRAMIDE HCL 10MG/2ML VIAL IV SCH ×3 (06:08→18:20)
[2020-01-26] MEDS: DIPHENHYDRAMINE 50MG/ML VIAL IV SCH ×3 (06:08→15:57)
[2020-01-26] MEDS: LINEZOLID 600 MG PREMIX 300 ML IV SCH ×2 (06:09→15:57)
[2020-01-26] MEDS: DOCUSATE SODIUM SUGAR FREE 100MG/10ML UDC NG SCH (09:03)
[2020-01-26] MEDS: DEXAMETHASONE 4MG/ML 1ML VIAL IV SCH (09:03)
[2020-01-26] MEDS: FERROUS SULFATE 325MG TABLET PO SCH ×3 (09:03→18:20)
[2020-01-26] MEDS: ENOXAPARIN 30MG/0.3ML SYR SUBCUT SCH (09:03)
[2020-01-26] MEDS: CEFAZOLIN 1000MG PREMIX 50 ML IV SCH ×2 (09:04→21:11)
[2020-01-26] MEDS: ACETAMINOPHEN 325MG TABLET PO PRN (10:01)
[2020-01-26] MEDS: SODIUM CHLORIDE 0.45% 1,000 ML IV SCH (10:28)
[2020-01-26 11:47] LABS: PLATELET ESTIMATE NORMAL
[2020-01-26] MEDS: CLONIDINE 0.1MG TABLET PO PRN (13:59)
[2020-01-26 14:53] LABS: BG BASE EXCESS -2.4 mmol/L (-2.0-2.0); BG CARBOXYHEMOGLOBIN 0.3 % (0.5-1.5); BG DEOXYHEMOGLOBIN 6.4 % (0.0-5.0); BG FRACTION INSPIRED OXYGEN 55; BG HCO3 ACT 21.2 mmol/L (22.0-26.0); BG OXYGEN SATURATION 93.6 % (92.0-98.5); BG OXYHEMOGLOBIN 93.3 % (94.0-97.0); BG PCO2 32.5 mmHg (35.0-45.0); BG PH 7.433 (7.350-7.450); BG PRESSURE SUPPORT 8; BG SAMPLE SITE RIGHT RADIAL; BG TOTAL HEMOGLOBIN 10.3 g/dL (12.0-18.0); BG VENT MODE VENT - CPAP
[2020-01-26] MEDS: LORAZEPAM 2MG/ML CPJ IV PRN ×2 (15:56→21:12)
[2020-01-26] MEDS: FAMOTIDINE 20MG/2ML VIAL IV SCH (21:12)
[2020-01-27] VITALS (51 sets, daily range): BP systolic 81–186; BP diastolic 33–110
[2020-01-27] MEDS: BLOOD SUGAR DIAGNOSTIC STRIP TEST SCH ×5 (00:03→23:32)
[2020-01-27] MEDS: METOCLOPRAMIDE HCL 10MG/2ML VIAL IV SCH ×5 (00:21→23:32)
[2020-01-27] MEDS: DIPHENHYDRAMINE 50MG/ML VIAL IV SCH ×5 (00:21→23:32)
[2020-01-27] MEDS: LORAZEPAM 2MG/ML CPJ IV PRN ×4 (00:21→19:41)
[2020-01-27] MEDS: IPRATROPIUM/ALBUTEROL 0.5-3(2.5)MG/3ML NEB HHN SCH ×6 (00:50→20:21)
[2020-01-27 05:37] LABS: HEMATOCRIT. 27.8 % (36.0-48.0); HEMOGLOBIN. 8.9 g/dL (12.0-16.0); MEAN CORPUSCULAR HEMOGLOBIN 26.2 pg (28.0-32.0); MEAN CORPUSCULAR VOLUME 81.8 fL (81.0-99.0); MEAN PLATELET VOLUME 10.9 fl (7.4-10.4); PLATELET 279 x1000/uL (130-400); RED BLOOD CELL COUNT 3.39 mill/uL (4.2-5.4); RED CELL DISTRIBUTION WIDTH 27.7 % (11.6-14.6)
[2020-01-27] MEDS: INSULIN LISPRO 100 UNITS/ML SUBCUT SCH ×5 (05:40→23:32)
[2020-01-27] MEDS: LINEZOLID 600 MG PREMIX 300 ML IV SCH ×2 (05:41→17:28)
[2020-01-27] MEDS: SODIUM CHLORIDE 0.45% 1,000 ML IV SCH (05:42)
[2020-01-27] MEDS: FERROUS SULFATE 325MG TABLET PO SCH ×3 (08:20→17:27)
[2020-01-27] MEDS: CEFAZOLIN 1000MG PREMIX 50 ML IV SCH ×2 (08:35→21:17)
[2020-01-27] MEDS: DOCUSATE SODIUM SUGAR FREE 100MG/10ML UDC NG SCH (08:35)
[2020-01-27 08:57] LABS: PLATELET ESTIMATE NORMAL
[2020-01-27] MEDS ORDERED: DEXAMETHASONE 4MG/ML 1ML VIAL IV SCH (09:00)
[2020-01-27] MEDS: ENOXAPARIN 30MG/0.3ML SYR SUBCUT SCH (09:00)
[2020-01-27] MEDS: FENTANYL CITRATE/PF 1,000 MCG in SODIUM CHLORIDE 0.9% 80 ML IV PRN (09:31)
[2020-01-27] MEDS: FAMOTIDINE 20MG/2ML VIAL IV SCH (21:17)
[2020-01-28] VITALS (48 sets, daily range): BP systolic 83–167; BP diastolic 48–100
[2020-01-28] MEDS: IPRATROPIUM/ALBUTEROL 0.5-3(2.5)MG/3ML NEB HHN SCH ×7 (00:14→23:48)
[2020-01-28] MEDS: SODIUM CHLORIDE 0.45% 1,000 ML IV SCH ×2 (02:09→23:29)
[2020-01-28] MEDS: FENTANYL CITRATE/PF 1,000 MCG in SODIUM CHLORIDE 0.9% 80 ML IV PRN ×3 (04:03→17:51)
[2020-01-28] MEDS: LINEZOLID 600 MG PREMIX 300 ML IV SCH ×2 (05:29→17:00)
[2020-01-28] MEDS: DIPHENHYDRAMINE 50MG/ML VIAL IV SCH ×4 (05:29→23:26)
[2020-01-28] MEDS: METOCLOPRAMIDE HCL 10MG/2ML VIAL IV SCH ×4 (05:29→23:26)
[2020-01-28] MEDS: INSULIN LISPRO 100 UNITS/ML SUBCUT SCH ×3 (05:51→18:00)
[2020-01-28] MEDS: BLOOD SUGAR DIAGNOSTIC STRIP TEST SCH ×3 (05:51→17:43)
[2020-01-28 05:55] LABS: HEMATOCRIT. 28.8 % (36.0-48.0); HEMOGLOBIN. 9.1 g/dL (12.0-16.0); MEAN CORPUSCULAR HEMOGLOBIN 26.3 pg (28.0-32.0); MEAN CORPUSCULAR VOLUME 83.1 fL (81.0-99.0); PLATELET 291 x1000/uL (130-400); RED BLOOD CELL COUNT 3.46 mill/uL (4.2-5.4); RED CELL DISTRIBUTION WIDTH 27.6 % (11.6-14.6)
[2020-01-28 08:39] LABS: PLATELET ESTIMATE NORMAL
[2020-01-28] MEDS: DOCUSATE SODIUM SUGAR FREE 100MG/10ML UDC NG SCH (09:11)
[2020-01-28] MEDS: ENOXAPARIN 30MG/0.3ML SYR SUBCUT SCH (09:11)
[2020-01-28] MEDS: CEFAZOLIN 1000MG PREMIX 50 ML IV SCH ×2 (09:11→20:52)
[2020-01-28] MEDS: FERROUS SULFATE 325MG TABLET PO SCH ×3 (09:11→18:31)
[2020-01-28] MEDS: LORAZEPAM 2MG/ML CPJ IV PRN ×3 (09:12→20:51)
[2020-01-28] MEDS: ACETAMINOPHEN 325MG TABLET PO PRN (20:52)
[2020-01-28] MEDS ORDERED: FENTANYL CITRATE/PF 1,000 MCG in SODIUM CHLORIDE 0.9% 80 ML IV PRN (22:30)
[2020-01-28] MEDS: FAMOTIDINE 20MG/2ML VIAL IV SCH (23:26)
[2020-01-29] VITALS (37 sets, daily range): BP systolic 96–215; BP diastolic 57–144
[2020-01-29] MEDS: IPRATROPIUM/ALBUTEROL 0.5-3(2.5)MG/3ML NEB HHN SCH ×6 (03:12→23:55)
[2020-01-29] MEDS: FENTANYL 1,000 MCG in SODIUM CHLORIDE 0.9% 100 ML IV PRN ×3 (04:18→23:09)
[2020-01-29] MEDS: BLOOD SUGAR DIAGNOSTIC STRIP TEST SCH ×5 (06:00→23:09)
[2020-01-29] MEDS: INSULIN LISPRO 100 UNITS/ML SUBCUT SCH ×5 (06:00→23:09)
[2020-01-29] MEDS: LINEZOLID 600 MG PREMIX 300 ML IV SCH ×2 (06:14→17:05)
[2020-01-29] MEDS: DIPHENHYDRAMINE 50MG/ML VIAL IV SCH ×4 (06:20→23:09)
[2020-01-29] MEDS: METOCLOPRAMIDE HCL 10MG/2ML VIAL IV SCH ×4 (06:20→23:09)
[2020-01-29 07:12] LABS: PROTHROMBIN TIME 11.1 sec (9.6-11.0)
[2020-01-29] MEDS: FERROUS SULFATE 325MG TABLET PO SCH ×3 (07:47→17:05)
[2020-01-29 08:35] LABS: HEMATOCRIT. 24.6 % (36.0-48.0); HEMOGLOBIN. 8.1 g/dL (12.0-16.0); MEAN CORPUSCULAR HEMOGLOBIN 26.9 pg (28.0-32.0); MEAN CORPUSCULAR VOLUME 81.8 fL (81.0-99.0); MEAN PLATELET VOLUME 10.5 fl (7.4-10.4); PLATELET 200 x1000/uL (130-400); RED CELL DISTRIBUTION WIDTH 27.3 % (11.6-14.6)
[2020-01-29] MEDS: DOCUSATE SODIUM SUGAR FREE 100MG/10ML UDC NG SCH (09:00)
[2020-01-29] MEDS: DEXT 5%/0.45% NACL 1000ML 1,000 ML IV SCH ×2 (09:15→10:08)
[2020-01-29 09:36] LABS: PLATELET ESTIMATE NORMAL
[2020-01-29] MEDS ORDERED: LIDOCAINE HCL 1% 20ML VIAL (Pyxis) INJ ONE (12:07)
[2020-01-29] MEDS ORDERED: BUPIVACAINE HCL/PF 0.5% (5MG/ML) 10ML ONE (12:07)
[2020-01-29] MEDS ORDERED: ROCURONIUM BROMIDE 10MG/ML VIAL 5ML IV ONE (12:56)
[2020-01-29] MEDS ORDERED: MIDAZOLAM HCL 2 MG/2 ML VIAL ONE (12:56)
[2020-01-29] MEDS ORDERED: CEFAZOLIN SODIUM 1000MG/VIAL ONE (13:10)
[2020-01-29] MEDS ORDERED: PHENYLEPHRINE HCL 10 MG/ML 1ML (IV VIAL) IV ONE (13:50)
[2020-01-29] MEDS: ACETAMINOPHEN 650MG/20.3ML UDC PO SCH ×2 (14:41→18:10)
[2020-01-29] MEDS: HYDRALAZINE 20MG/ML VIAL IV PRN (18:09)
[2020-01-29] MEDS: CLONIDINE 0.1MG TABLET PO PRN (19:45)
[2020-01-29] MEDS: LORAZEPAM 2MG/ML CPJ IV PRN (19:45)
[2020-01-29] MEDS: FAMOTIDINE 20MG/2ML VIAL IV SCH (20:11)
[2020-01-29] MEDS: OLANZAPINE 10MG TABLET PO SCH (23:27)
[2020-01-30] VITALS (48 sets, daily range): BP systolic 91–167; BP diastolic 64–104
[2020-01-30] MEDS: ACETAMINOPHEN 650MG/20.3ML UDC PO SCH ×3 (01:14→12:21)
[2020-01-30] MEDS: LORAZEPAM 2MG/ML CPJ IV PRN (05:25)
[2020-01-30] MEDS: METOCLOPRAMIDE HCL 10MG/2ML VIAL IV SCH ×3 (05:25→17:15)
[2020-01-30] MEDS: BLOOD SUGAR DIAGNOSTIC STRIP TEST SCH ×4 (05:25→23:36)
[2020-01-30] MEDS: DIPHENHYDRAMINE 50MG/ML VIAL IV SCH ×2 (05:25→11:45)
[2020-01-30 05:49] LABS: HEMATOCRIT. 29.1 % (36.0-48.0); HEMOGLOBIN. 9.5 g/dL (12.0-16.0); MEAN CORPUSCULAR HEMOGLOBIN 26.4 pg (28.0-32.0); MEAN CORPUSCULAR VOLUME 81.4 fL (81.0-99.0); MEAN PLATELET VOLUME 9.6 fl (7.4-10.4); RED BLOOD CELL COUNT 3.57 mill/uL (4.2-5.4)
[2020-01-30] MEDS: INSULIN LISPRO 100 UNITS/ML SUBCUT SCH ×4 (06:00→23:36)
[2020-01-30] MEDS: FERROUS SULFATE 325MG TABLET PO SCH ×3 (07:53→17:15)
[2020-01-30] MEDS: DOCUSATE SODIUM SUGAR FREE 100MG/10ML UDC NG SCH (09:00)
[2020-01-30] MEDS: IPRATROPIUM/ALBUTEROL 0.5-3(2.5)MG/3ML NEB HHN SCH ×4 (09:24→20:42)
[2020-01-30 10:23] LABS: NUCLEATED RED BLOOD CELLS 1 /100 WBC
[2020-01-30 10:25] LABS: PLATELET ESTIMATE NORMAL
[2020-01-30 10:26] LABS: PLATELET 132 x1000/uL (130-400)
[2020-01-30] MEDS ORDERED: CEFAZOLIN 1000MG PREMIX 50 ML IV SCH (12:00)
[2020-01-30] MEDS ORDERED: MIDAZOLAM HCL 5 MG/5 ML VIAL ONE (12:39)
[2020-01-30] MEDS ORDERED: FENTANYL CITRATE/PF 50MCG/ML 2ML VIAL ONE (12:39)
[2020-01-30] MEDS ORDERED: MIDAZOLAM HCL 5 MG/5 ML VIAL IV PRN (13:45)
[2020-01-30] MEDS: OLANZAPINE 10MG TABLET PO SCH ×2 (14:16→14:46)
[2020-01-30] MEDS ORDERED: FENTANYL CITRATE/PF 50MCG/ML 2ML VIAL IV PRN (16:00)
[2020-01-30] MEDS: PANTOPRAZOLE SODIUM 40 MG/VIAL IV SCH (17:15)
[2020-01-30] MEDS: SUCRALFATE 1 G/10 ML UDC PO SCH ×2 (17:15→23:36)
[2020-01-30] MEDS ORDERED: ALBUMIN HUMAN 25GM/500ML (5%) IV NR (18:30)
[2020-01-30] MEDS: FENTANYL 1,000 MCG in SODIUM CHLORIDE 0.9% 100 ML IV PRN (18:47)
[2020-01-30] MEDS: ACETAMINOPHEN 325MG TABLET PO PRN (20:47)
[2020-01-31] VITALS (37 sets, daily range): BP systolic 98–166; BP diastolic 62–102
[2020-01-31] MEDS: IPRATROPIUM/ALBUTEROL 0.5-3(2.5)MG/3ML NEB HHN SCH ×6 (00:27→20:31)
[2020-01-31] MEDS: BLOOD SUGAR DIAGNOSTIC STRIP TEST SCH ×3 (05:56→18:21)
[2020-01-31] MEDS: SUCRALFATE 1 G/10 ML UDC PO SCH ×3 (05:56→18:20)
[2020-01-31] MEDS: INSULIN LISPRO 100 UNITS/ML SUBCUT SCH ×3 (05:56→18:00)
[2020-01-31 06:00] LABS: HEMATOCRIT. 23.8 % (36.0-48.0); HEMOGLOBIN. 7.7 g/dL (12.0-16.0); MEAN CORPUSCULAR HEMOGLOBIN 26.3 pg (28.0-32.0); MEAN CORPUSCULAR VOLUME 81.4 fL (81.0-99.0); RED BLOOD CELL COUNT 2.92 mill/uL (4.2-5.4); RED CELL DISTRIBUTION WIDTH 27.4 % (11.6-14.6)
[2020-01-31 08:13] LABS: PLATELET ESTIMATE NORMAL
[2020-01-31] MEDS: PANTOPRAZOLE SODIUM 40 MG/VIAL IV SCH (08:18)
[2020-01-31] MEDS: FERROUS SULFATE 325MG TABLET PO SCH ×3 (08:18→18:20)
[2020-01-31] MEDS: DOCUSATE SODIUM SUGAR FREE 100MG/10ML UDC NG SCH (08:18)
[2020-01-31] MEDS: OLANZAPINE 10MG TABLET PO SCH (08:22)
[2020-01-31] MEDS: ENOXAPARIN 30MG/0.3ML SYR SUBCUT SCH (10:37)
[2020-01-31] MEDS: DEXT 5%/0.45% NACL 1000ML 1,000 ML IV SCH ×2 (12:26→15:12)
[2020-01-31] MEDS: ACETAMINOPHEN 325MG TABLET PO PRN (15:13)
[2020-01-31] MEDS: CEFEPIME 2,000 MG in DEXT 5% WATER 100 ML IV SCH (19:49)
[2020-01-31] MEDS: METOPROLOL TARTRATE 25MG TABLET PO SCH (20:08)
[2020-02-01] VITALS (12 sets, daily range): BP systolic 119–187; BP diastolic 73–115
[2020-02-01] MEDS: IPRATROPIUM/ALBUTEROL 0.5-3(2.5)MG/3ML NEB HHN SCH ×6 (00:12→20:24)
[2020-02-01] MEDS: SUCRALFATE 1 G/10 ML UDC PO SCH ×4 (00:46→17:13)
[2020-02-01] MEDS: BLOOD SUGAR DIAGNOSTIC STRIP TEST SCH ×4 (00:47→17:14)
[2020-02-01] MEDS: ACETAMINOPHEN 650MG/20.3ML UDC PO PRN ×3 (00:47→23:56)
[2020-02-01 00:49] LABS: CLARITY URINE CLEAR (CLEAR); COLOR URINE YELLOW (YELLOW); KETONES URINE NEGATIVE (NEGATIVE); LEUKOCYTE ESTERASE URINE NEGATIVE (NEGATIVE); NITRITE URINE NEGATIVE (NEGATIVE); OCCULT BLOOD URINE 2+ (NEGATIVE); PROTEIN URINE 3+ (NEGATIVE); SPECIFIC GRAVITY URINE 1.014 (1.005-1.030)
[2020-02-01] MEDS: INSULIN LISPRO 100 UNITS/ML SUBCUT SCH ×4 (05:16→17:14)
[2020-02-01] MEDS: CLONIDINE 0.1MG TABLET PO PRN ×2 (06:42→17:13)
[2020-02-01 07:24] LABS: HEMATOCRIT. 24.4 % (36.0-48.0); HEMOGLOBIN. 7.9 g/dL (12.0-16.0); MEAN CORPUSCULAR HEMOGLOBIN 26.4 pg (28.0-32.0); MEAN CORPUSCULAR VOLUME 81.5 fL (81.0-99.0); RED BLOOD CELL COUNT 2.99 mill/uL (4.2-5.4); RED CELL DISTRIBUTION WIDTH 26.8 % (11.6-14.6)
[2020-02-01] MEDS: OLANZAPINE 10MG TABLET PO SCH (08:23)
[2020-02-01] MEDS: PANTOPRAZOLE SODIUM 40 MG/VIAL IV SCH (08:23)
[2020-02-01] MEDS: DOCUSATE SODIUM SUGAR FREE 100MG/10ML UDC NG SCH (08:23)
[2020-02-01] MEDS: METOPROLOL TARTRATE 25MG TABLET PO SCH ×2 (08:24→20:53)
[2020-02-01] MEDS: ENOXAPARIN 30MG/0.3ML SYR SUBCUT SCH (08:24)
[2020-02-01] MEDS: FERROUS SULFATE 325MG TABLET PO SCH ×3 (08:24→17:13)
[2020-02-01] MEDS: LORAZEPAM 2MG/ML CPJ IV PRN ×2 (13:18→21:09)
[2020-02-01] MEDS: DEXT 5%/0.45% NACL 1000ML 1,000 ML IV SCH (15:45)
[2020-02-01 16:58] LABS: PLATELET ESTIMATE NORMAL
[2020-02-01] MEDS: CEFEPIME 2,000 MG in DEXT 5% WATER 100 ML IV SCH (17:30)
[2020-02-02] VITALS (13 sets, daily range): BP systolic 124–156; BP diastolic 82–102
[2020-02-02] MEDS: IPRATROPIUM/ALBUTEROL 0.5-3(2.5)MG/3ML NEB HHN SCH ×6 (00:05→20:26)
[2020-02-02] MEDS: BLOOD SUGAR DIAGNOSTIC STRIP TEST SCH ×4 (00:51→18:05)
[2020-02-02] MEDS: SUCRALFATE 1 G/10 ML UDC PO SCH ×4 (00:51→18:20)
[2020-02-02] MEDS: INSULIN LISPRO 100 UNITS/ML SUBCUT SCH ×4 (06:00→18:00)
[2020-02-02] MEDS: DOCUSATE SODIUM SUGAR FREE 100MG/10ML UDC NG SCH (09:00)
[2020-02-02] MEDS: PANTOPRAZOLE SODIUM 40 MG/VIAL IV SCH (09:07)
[2020-02-02] MEDS: METOPROLOL TARTRATE 25MG TABLET PO SCH ×2 (09:08→21:06)
[2020-02-02] MEDS: FERROUS SULFATE 325MG TABLET PO SCH ×3 (09:09→18:20)
[2020-02-02] MEDS: ENOXAPARIN 30MG/0.3ML SYR SUBCUT SCH (09:09)
[2020-02-02] MEDS: OLANZAPINE 10MG TABLET PO SCH (09:09)
[2020-02-02] MEDS: DEXT 5%/0.45% NACL 1000ML 1,000 ML IV SCH (13:05)
[2020-02-02] MEDS: CEFEPIME 2,000 MG in DEXT 5% WATER 100 ML IV SCH (18:20)
[2020-02-02] MEDS: MICAFUNGIN 100 MG in SODIUM CHLORIDE 0.9% 100 ML IV SCH (18:54)
[2020-02-03] VITALS (11 sets, daily range): BP systolic 124–152; BP diastolic 67–93
[2020-02-03] MEDS: BLOOD SUGAR DIAGNOSTIC STRIP TEST SCH ×5 (00:43→23:48)
[2020-02-03] MEDS: SUCRALFATE 1 G/10 ML UDC PO SCH ×5 (00:43→23:48)
[2020-02-03] MEDS: IPRATROPIUM/ALBUTEROL 0.5-3(2.5)MG/3ML NEB HHN SCH ×6 (01:03→20:23)
[2020-02-03] MEDS: INSULIN LISPRO 100 UNITS/ML SUBCUT SCH ×5 (05:11→23:48)
[2020-02-03 05:17] LABS: HEMOGLOBIN. 7.1 g/dL (12.0-16.0); MEAN CORPUSCULAR HEMOGLOBIN 26.4 pg (28.0-32.0); MEAN CORPUSCULAR VOLUME 81.4 fL (81.0-99.0); RED BLOOD CELL COUNT 2.71 mill/uL (4.2-5.4); RED CELL DISTRIBUTION WIDTH 26.3 % (11.6-14.6)
[2020-02-03] MEDS: DOCUSATE SODIUM SUGAR FREE 100MG/10ML UDC NG SCH (09:00)
[2020-02-03] MEDS: FERROUS SULFATE 325MG TABLET PO SCH ×3 (09:43→19:04)
[2020-02-03] MEDS: OLANZAPINE 10MG TABLET PO SCH (09:43)
[2020-02-03] MEDS: PANTOPRAZOLE SODIUM 40 MG/VIAL IV SCH (09:43)
[2020-02-03] MEDS: METOPROLOL TARTRATE 25MG TABLET PO SCH ×2 (09:43→20:10)
[2020-02-03] MEDS: ENOXAPARIN 30MG/0.3ML SYR SUBCUT SCH (09:45)
[2020-02-03] MEDS: DEXT 5%/0.45% NACL 1000ML 1,000 ML IV SCH (09:46)
[2020-02-03] MEDS: MICAFUNGIN 100 MG in SODIUM CHLORIDE 0.9% 100 ML IV SCH (19:03)
[2020-02-03] MEDS: CEFEPIME 2,000 MG in DEXT 5% WATER 100 ML IV SCH (19:04)
[2020-02-03] MEDS: ACETAMINOPHEN 650MG/20.3ML UDC PO PRN (23:51)
[2020-02-04] VITALS (11 sets, daily range): BP systolic 120–165; BP diastolic 74–98
[2020-02-04] MEDS: IPRATROPIUM/ALBUTEROL 0.5-3(2.5)MG/3ML NEB HHN SCH ×5 (01:17→20:54)
[2020-02-04] MEDS: BLOOD SUGAR DIAGNOSTIC STRIP TEST SCH ×3 (05:26→17:55)
[2020-02-04] MEDS: SUCRALFATE 1 G/10 ML UDC PO SCH ×3 (05:26→17:55)
[2020-02-04] MEDS: DEXT 5%/0.45% NACL 1000ML 1,000 ML IV SCH ×2 (05:26→22:01)
[2020-02-04] MEDS: INSULIN LISPRO 100 UNITS/ML SUBCUT SCH ×3 (05:26→17:55)
[2020-02-04] MEDS: ENOXAPARIN 30MG/0.3ML SYR SUBCUT SCH (07:34)
[2020-02-04] MEDS: DOCUSATE SODIUM SUGAR FREE 100MG/10ML UDC NG SCH (09:24)
[2020-02-04] MEDS: PANTOPRAZOLE SODIUM 40 MG/VIAL IV SCH (09:25)
[2020-02-04] MEDS: OLANZAPINE 10MG TABLET PO SCH (09:25)
[2020-02-04] MEDS: METOPROLOL TARTRATE 25MG TABLET PO SCH ×2 (09:25→22:00)
[2020-02-04] MEDS: FERROUS SULFATE 300MG/5ML UDC PO SCH ×2 (12:19→17:55)
[2020-02-04 12:57] LABS: HEMATOCRIT. 24.7 % (36.0-48.0); HEMOGLOBIN. 7.8 g/dL (12.0-16.0); MEAN CORPUSCULAR HEMOGLOBIN 25.9 pg (28.0-32.0); MEAN CORPUSCULAR VOLUME 81.8 fL (81.0-99.0); MEAN PLATELET VOLUME 9.8 fl (7.4-10.4); PLATELET 208 x1000/uL (130-400); RED BLOOD CELL COUNT 3.02 mill/uL (4.2-5.4); RED CELL DISTRIBUTION WIDTH 26.4 % (11.6-14.6)
[2020-02-04] MEDS: MORPHINE SULFATE 4 MG/ML CPJ (NOT FOR IM USE) IV PRN (14:50)
[2020-02-04 14:52] LABS: BG BASE EXCESS -7.3 mmol/L (-2.0-2.0); BG CARBOXYHEMOGLOBIN 0.3 % (0.5-1.5); BG DEOXYHEMOGLOBIN 1.4 % (0.0-5.0); BG HCO3 ACT 15.9 mmol/L (22.0-26.0); BG METHEMOGLOBIN 0.2 % (0.0-1.5); BG OXYGEN SATURATION 98.6 % (92.0-98.5); BG OXYHEMOGLOBIN 98.1 % (94.0-97.0); BG PCO2 25.2 mmHg (35.0-45.0); BG PH 7.417 (7.350-7.450); BG PO2 140.9 mmHg (75.0-100.0); BG SAMPLE SITE RIGHT BRACHIAL; BG TIDAL VOLUME(mL) 500 mL; BG TOTAL HEMOGLOBIN 10.2 g/dL (12.0-18.0); BG VENT MODE VENT - A/C; BG VENT RATE 12 set
[2020-02-04] MEDS: CEFEPIME 2,000 MG in DEXT 5% WATER 100 ML IV SCH (17:54)
[2020-02-04] MEDS: MICAFUNGIN 100 MG in SODIUM CHLORIDE 0.9% 100 ML IV SCH (18:38)
[2020-02-04 22:04] LABS: PLATELET ESTIMATE NORMAL
[2020-02-05] VITALS (12 sets, daily range): BP systolic 115–154; BP diastolic 69–93
[2020-02-05] MEDS: SUCRALFATE 1 G/10 ML UDC PO SCH ×4 (00:30→17:43)
[2020-02-05] MEDS: IPRATROPIUM/ALBUTEROL 0.5-3(2.5)MG/3ML NEB HHN SCH ×6 (00:45→20:37)
[2020-02-05] MEDS: BLOOD SUGAR DIAGNOSTIC STRIP TEST SCH ×5 (05:30→23:56)
[2020-02-05] MEDS: INSULIN LISPRO 100 UNITS/ML SUBCUT SCH ×4 (05:31→18:00)
[2020-02-05 06:05] LABS: HEMATOCRIT. 23.1 % (36.0-48.0); HEMOGLOBIN. 7.4 g/dL (12.0-16.0); MEAN CORPUSCULAR HEMOGLOBIN 25.9 pg (28.0-32.0); MEAN CORPUSCULAR VOLUME 80.9 fL (81.0-99.0); MEAN PLATELET VOLUME 9.7 fl (7.4-10.4); RED BLOOD CELL COUNT 2.86 mill/uL (4.2-5.4); RED CELL DISTRIBUTION WIDTH 26.4 % (11.6-14.6)
[2020-02-05] MEDS: PANTOPRAZOLE SODIUM 40 MG/VIAL IV SCH (08:26)
[2020-02-05] MEDS: FERROUS SULFATE 300MG/5ML UDC PO SCH ×3 (08:26→17:43)
[2020-02-05] MEDS: DOCUSATE SODIUM SUGAR FREE 100MG/10ML UDC NG SCH (08:26)
[2020-02-05] MEDS: OLANZAPINE 10MG TABLET PO SCH (08:26)
[2020-02-05] MEDS: ENOXAPARIN 30MG/0.3ML SYR SUBCUT SCH ×2 (08:26→17:44)
[2020-02-05] MEDS: METOPROLOL TARTRATE 25MG TABLET PO SCH ×2 (08:26→22:17)
[2020-02-05 14:05] LABS: PLATELET ESTIMATE NORMAL
[2020-02-05 14:08] LABS: PLATELET 142 x1000/uL (130-400)
[2020-02-05] MEDS: CEFEPIME 2,000 MG in DEXT 5% WATER 100 ML IV SCH (17:43)
[2020-02-05] MEDS: METOCLOPRAMIDE HCL 5MG TABLET PO SCH ×2 (17:53→23:55)
[2020-02-05] MEDS: MICAFUNGIN 100 MG in SODIUM CHLORIDE 0.9% 100 ML IV SCH (18:43)
[2020-02-06] VITALS (9 sets, daily range): BP systolic 115–141; BP diastolic 68–88
[2020-02-06] MEDS: BLOOD SUGAR DIAGNOSTIC STRIP TEST SCH ×4 (06:00→23:12)
[2020-02-06] MEDS: INSULIN LISPRO 100 UNITS/ML SUBCUT SCH ×5 (06:00→23:12)
[2020-02-06] MEDS: DOCUSATE SODIUM SUGAR FREE 100MG/10ML UDC NG SCH (09:05)
[2020-02-06] MEDS: FERROUS SULFATE 300MG/5ML UDC PO SCH ×3 (09:05→17:50)
[2020-02-06] MEDS: OLANZAPINE 10MG TABLET PO SCH (09:06)
[2020-02-06] MEDS: PANTOPRAZOLE SODIUM 40 MG/VIAL IV SCH (09:06)
[2020-02-06] MEDS: METOCLOPRAMIDE HCL 5MG TABLET PO SCH ×4 (09:06→23:11)
[2020-02-06] MEDS: METOPROLOL TARTRATE 25MG TABLET PO SCH ×2 (09:06→20:19)
[2020-02-06] MEDS: ENOXAPARIN 30MG/0.3ML SYR SUBCUT SCH (10:19)
[2020-02-06] MEDS: SUCRALFATE 1 G/10 ML UDC PO SCH ×3 (12:00→23:11)
[2020-02-06] MEDS: IPRATROPIUM/ALBUTEROL 0.5-3(2.5)MG/3ML NEB HHN SCH ×3 (12:55→21:04)
[2020-02-07] VITALS (12 sets, daily range): BP systolic 123–168; BP diastolic 78–127
[2020-02-07] MEDS: IPRATROPIUM/ALBUTEROL 0.5-3(2.5)MG/3ML NEB HHN SCH ×6 (00:40→16:42)
[2020-02-07] MEDS: SUCRALFATE 1 G/10 ML UDC PO SCH ×3 (05:35→17:41)
[2020-02-07] MEDS: METOCLOPRAMIDE HCL 5MG TABLET PO SCH ×3 (05:35→17:41)
[2020-02-07] MEDS: INSULIN LISPRO 100 UNITS/ML SUBCUT SCH ×3 (05:36→18:00)
[2020-02-07] MEDS: BLOOD SUGAR DIAGNOSTIC STRIP TEST SCH ×3 (05:36→17:42)
[2020-02-07] MEDS: OLANZAPINE 10MG TABLET PO SCH (08:49)
[2020-02-07] MEDS: PANTOPRAZOLE SODIUM 40 MG/VIAL IV SCH (08:49)
[2020-02-07] MEDS: DOCUSATE SODIUM SUGAR FREE 100MG/10ML UDC NG SCH (08:49)
[2020-02-07] MEDS: METOPROLOL TARTRATE 25MG TABLET PO SCH ×2 (08:49→21:29)
[2020-02-07] MEDS: FERROUS SULFATE 300MG/5ML UDC PO SCH ×3 (08:50→17:41)
[2020-02-07] MEDS: ENOXAPARIN 30MG/0.3ML SYR SUBCUT SCH (08:57)
[2020-02-07] MEDS: DIPHENHYDRAMINE 50MG/ML VIAL IV PRN (23:22)
[2020-02-07] MEDS: MORPHINE SULFATE 4 MG/ML CPJ (NOT FOR IM USE) IV PRN (23:22)
[2020-02-08] VITALS (12 sets, daily range): BP systolic 101–158; BP diastolic 61–97
[2020-02-08] MEDS ORDERED: HALOPERIDOL LACTATE 5MG/ML VIAL IM NR (01:45)
[2020-02-08] MEDS: IPRATROPIUM/ALBUTEROL 0.5-3(2.5)MG/3ML NEB HHN SCH ×5 (04:33→20:06)
[2020-02-08] MEDS: DIPHENHYDRAMINE 50MG/ML VIAL IV PRN (05:40)
[2020-02-08] MEDS: MORPHINE SULFATE 4 MG/ML CPJ (NOT FOR IM USE) IV PRN (05:42)
[2020-02-08] MEDS: INSULIN LISPRO 100 UNITS/ML SUBCUT SCH ×4 (06:00→17:57)
[2020-02-08] MEDS: BLOOD SUGAR DIAGNOSTIC STRIP TEST SCH ×4 (06:02→17:56)
[2020-02-08] MEDS: METOCLOPRAMIDE HCL 5MG TABLET PO SCH ×4 (06:02→17:57)
[2020-02-08] MEDS: SUCRALFATE 1 G/10 ML UDC PO SCH ×4 (06:02→17:57)
[2020-02-08 06:16] LABS: HEMATOCRIT. 22.8 % (36.0-48.0); HEMOGLOBIN. 7.3 g/dL (12.0-16.0); MEAN CORPUSCULAR HEMOGLOBIN 25.8 pg (28.0-32.0); MEAN CORPUSCULAR VOLUME 80.6 fL (81.0-99.0); MEAN PLATELET VOLUME 9.6 fl (7.4-10.4); PLATELET 231 x1000/uL (130-400); RED BLOOD CELL COUNT 2.83 mill/uL (4.2-5.4); RED CELL DISTRIBUTION WIDTH 25.8 % (11.6-14.6)
[2020-02-08] MEDS: DOCUSATE SODIUM SUGAR FREE 100MG/10ML UDC NG SCH (08:59)
[2020-02-08] MEDS: PANTOPRAZOLE SODIUM 40 MG/VIAL IV SCH (08:59)
[2020-02-08] MEDS: OLANZAPINE 10MG TABLET PO SCH (08:59)
[2020-02-08] MEDS: FERROUS SULFATE 300MG/5ML UDC PO SCH ×3 (08:59→17:57)
[2020-02-08] MEDS: ENOXAPARIN 30MG/0.3ML SYR SUBCUT SCH (09:00)
[2020-02-08] MEDS: METOPROLOL TARTRATE 25MG TABLET PO SCH ×2 (09:00→20:45)
[2020-02-08 22:28] LABS: PLATELET ESTIMATE NORMAL
[2020-02-09] VITALS (12 sets, daily range): BP systolic 101–140; BP diastolic 67–94
[2020-02-09] MEDS: METOCLOPRAMIDE HCL 5MG TABLET PO SCH ×4 (00:07→17:29)
[2020-02-09] MEDS: BLOOD SUGAR DIAGNOSTIC STRIP TEST SCH ×4 (00:07→17:11)
[2020-02-09] MEDS: SUCRALFATE 1 G/10 ML UDC PO SCH ×4 (00:07→17:29)
[2020-02-09] MEDS: IPRATROPIUM/ALBUTEROL 0.5-3(2.5)MG/3ML NEB HHN SCH ×6 (00:40→20:15)
[2020-02-09] MEDS: INSULIN LISPRO 100 UNITS/ML SUBCUT SCH ×4 (06:00→17:11)
[2020-02-09] MEDS: DOCUSATE SODIUM SUGAR FREE 100MG/10ML UDC NG SCH (09:00)
[2020-02-09] MEDS: ENOXAPARIN 30MG/0.3ML SYR SUBCUT SCH (09:00)
[2020-02-09] MEDS: PANTOPRAZOLE SODIUM 40 MG/VIAL IV SCH (09:36)
[2020-02-09] MEDS: OLANZAPINE 10MG TABLET PO SCH (09:36)
[2020-02-09] MEDS: METOPROLOL TARTRATE 25MG TABLET PO SCH ×2 (09:36→21:07)
[2020-02-09] MEDS: FERROUS SULFATE 300MG/5ML UDC PO SCH ×3 (09:36→17:29)
[2020-02-10] VITALS (12 sets, daily range): BP systolic 111–148; BP diastolic 75–90
[2020-02-10] MEDS: SUCRALFATE 1 G/10 ML UDC PO SCH ×5 (00:44→23:44)
[2020-02-10] MEDS: METOCLOPRAMIDE HCL 5MG TABLET PO SCH ×5 (00:44→23:44)
[2020-02-10] MEDS: BLOOD SUGAR DIAGNOSTIC STRIP TEST SCH ×5 (00:44→23:44)
[2020-02-10] MEDS: IPRATROPIUM/ALBUTEROL 0.5-3(2.5)MG/3ML NEB HHN SCH ×7 (00:50→23:32)
[2020-02-10] MEDS: INSULIN LISPRO 100 UNITS/ML SUBCUT SCH ×5 (05:13→23:44)
[2020-02-10] MEDS: ENOXAPARIN 30MG/0.3ML SYR SUBCUT SCH (08:38)
[2020-02-10] MEDS: DOCUSATE SODIUM SUGAR FREE 100MG/10ML UDC NG SCH (08:39)
[2020-02-10] MEDS: PANTOPRAZOLE SODIUM 40 MG/VIAL IV SCH (08:40)
[2020-02-10] MEDS: METOPROLOL TARTRATE 25MG TABLET PO SCH ×2 (08:40→21:07)
[2020-02-10] MEDS: FERROUS SULFATE 300MG/5ML UDC PO SCH ×3 (08:40→17:29)
[2020-02-10] MEDS: OLANZAPINE 10MG TABLET PO SCH (08:40)
[2020-02-10 18:04] LABS: HEMOGLOBIN. 7.3 g/dL (12.0-16.0); MEAN CORPUSCULAR VOLUME 81.2 fL (81.0-99.0); MEAN PLATELET VOLUME 9.8 fl (7.4-10.4); PLATELET 283 x1000/uL (130-400); RED BLOOD CELL COUNT 2.83 mill/uL (4.2-5.4); RED CELL DISTRIBUTION WIDTH 25.7 % (11.6-14.6)
[2020-02-10 20:08] LABS: PLATELET ESTIMATE NORMAL
[2020-02-11] VITALS (9 sets, daily range): BP systolic 108–148; BP diastolic 55–90
[2020-02-11] MEDS: IPRATROPIUM/ALBUTEROL 0.5-3(2.5)MG/3ML NEB HHN SCH ×3 (03:54→12:38)
[2020-02-11] MEDS: METOCLOPRAMIDE HCL 5MG TABLET PO SCH ×2 (05:19→12:33)
[2020-02-11] MEDS: BLOOD SUGAR DIAGNOSTIC STRIP TEST SCH ×2 (05:19→12:21)
[2020-02-11] MEDS: SUCRALFATE 1 G/10 ML UDC PO SCH ×2 (05:19→12:33)
[2020-02-11] MEDS: INSULIN LISPRO 100 UNITS/ML SUBCUT SCH ×2 (05:19→12:00)
[2020-02-11 06:27] LABS: HEMATOCRIT. 23.7 % (36.0-48.0); HEMOGLOBIN. 7.5 g/dL (12.0-16.0); MEAN CORPUSCULAR HEMOGLOBIN 25.6 pg (28.0-32.0); MEAN CORPUSCULAR VOLUME 81.1 fL (81.0-99.0); MEAN PLATELET VOLUME 9.4 fl (7.4-10.4); PLATELET 316 x1000/uL (130-400); RED BLOOD CELL COUNT 2.92 mill/uL (4.2-5.4); RED CELL DISTRIBUTION WIDTH 26.5 % (11.6-14.6)
[2020-02-11] MEDS ORDERED: POTASSIUM CHLORIDE 20MEQ TABLET SR PO NR (08:30)
[2020-02-11] MEDS: PANTOPRAZOLE SODIUM 40 MG/VIAL IV SCH (08:44)
[2020-02-11] MEDS: DOCUSATE SODIUM SUGAR FREE 100MG/10ML UDC NG SCH (08:44)
[2020-02-11] MEDS: FERROUS SULFATE 300MG/5ML UDC PO SCH ×2 (08:45→12:33)
[2020-02-11] MEDS: OLANZAPINE 10MG TABLET PO SCH (08:46)
[2020-02-11] MEDS: ENOXAPARIN 30MG/0.3ML SYR SUBCUT SCH (08:46)
[2020-02-11] MEDS: METOPROLOL TARTRATE 25MG TABLET PO SCH (08:46)
[2020-02-11 13:49] LABS: NUCLEATED RED BLOOD CELLS 2 /100 WBC
[2020-02-11 13:51] LABS: PLATELET ESTIMATE NORMAL
== END 2020-02-11 15:30 | DRG 4 ==
LOC: ER 08:01 → MICUSO 09:25 → EDBEDREQ 09:38 → EDBEDREQTM 09:38 → CVICU 01-09 11:58 → 5EST 01-31 13:00
PROVIDERS: ADMIT Internal Medicine; ATTEND Internal Medicine
PROC: 5A1955Z Respiratory Ventilation, Greater than 96 Consecutive Hours (ICD-10-PCS; principal; 2020-01-08)
PROC: 0BH17EZ Insertion of Endotracheal Airway into Trachea, Via Natural or Artificial Opening (ICD-10-PCS; 2020-01-08)
PROC: 30233K1 Transfusion of Nonautologous Frozen Plasma into Peripheral Vein, Percutaneous Approach (ICD-10-PCS; 2020-01-08)
PROC: 30233N1 Transfusion of Nonautologous Red Blood Cells into Peripheral Vein, Percutaneous Approach (ICD-10-PCS; 2020-01-08)
PROC: 05HY33Z Insertion of Infusion Device into Upper Vein, Percutaneous Approach (ICD-10-PCS; 2020-01-12)
PROC: B54MZZA Ultrasonography of Right Upper Extremity Veins, Guidance (ICD-10-PCS; 2020-01-12)
PROC: 4A0004Z Measurement of Central Nervous Electrical Activity, Open Approach (ICD-10-PCS; 2020-01-28)
PROC: 0B110F4 Bypass Trachea to Cutaneous with Tracheostomy Device, Open Approach (ICD-10-PCS; 2020-01-29)
PROC: 0DH63UZ Insertion of Feeding Device into Stomach, Percutaneous Approach (ICD-10-PCS; 2020-01-30)
PROC: 0DB68ZX Excision of Stomach, Via Natural or Artificial Opening Endoscopic, Diagnostic (ICD-10-PCS; 2020-01-30)
DX: T78.3XXA Angioneurotic edema, initial encounter (principal); J96.00 Acute respiratory failure, unspecified whether with hypoxia or hypercapnia; N17.0 Acute kidney failure with tubular necrosis; J15.0 Pneumonia due to Klebsiella pneumoniae; J15.212 Pneumonia due to Methicillin resistant Staphylococcus aureus; E87.0 Hyperosmolality and hypernatremia; G93.40 Encephalopathy, unspecified; E46 Unspecified protein-calorie malnutrition; E87.3 Alkalosis; K22.10 Ulcer of esophagus without bleeding; Z99.11 Dependence on respirator [ventilator] status; I13.0 Hypertensive heart and chronic kidney disease with heart failure and stage 1 through stage 4 chronic kidney disease, or unspecified chronic kidney disease; B37.49 Other urogenital candidiasis; D50.9 Iron deficiency anemia, unspecified; E87.5 Hyperkalemia; E11.22 Type 2 diabetes mellitus with diabetic chronic kidney disease; N18.9 Chronic kidney disease, unspecified; E11.65 Type 2 diabetes mellitus with hyperglycemia; E87.6 Hypokalemia; K29.70 Gastritis, unspecified, without bleeding; Z20.828 Contact with and (suspected) exposure to other viral communicable diseases; I50.9 Heart failure, unspecified; T38.0X5A Adverse effect of glucocorticoids and synthetic analogues, initial encounter; T46.4X5A Adverse effect of angiotensin-converting-enzyme inhibitors, initial encounter; Z78.1 Physical restraint status; Z87.19 Personal history of other diseases of the digestive system; Z88.8 Allergy status to other drugs, medicaments and biological substances; Z93.1 Gastrostomy status; Z79.899 Other long term (current) drug therapy; Z79.82 Long term (current) use of aspirin; Z68.30 Body mass index [BMI] 30.0-30.9, adult; Y92.89 Other specified places as the place of occurrence of the external cause
CPT/HCPCS: 36415; 36600; 71045; 74018; 76937; 80048; 80053; 81003; 82270; 82375; 82550; 82728; 82805; 82962; 83036; 83540; 83550; 83735; 83880; 84100; 84132; 84145; 84439; 84443; 84480; 84484; 85014; 85018; 85025; 86850; 86900; 86920; 86927; 87070; 87077; 87106; 87186; 87635; 88305; 88312; 88313; 93005; 93306; 93970; 94003; 94640; 95816; 99291; C1725; C9113; J0360; J0690; J0692; J0878; J1100; J1200; J1630; J1650; J1815; J1940; J2020; J2060; J2248; J2250; J2270; J2370; J2543; J2704; J2765; J2930; J3010; J3370; J3490; J7030; J7050; J7060; J7070; J7608; J8597; P9016; P9017; P9041; U0003-CS

== ENCOUNTER 2020-10-17 03:37 | Inpatient (IN) | payer OTHER ==
[2020-10-17] VITALS (9 sets, daily range): BP systolic 119–158; BP diastolic 79–92
[~2020-10-17] VITALS: Ht 175.3 cm; Wt 69.7 kg
[~2020-10-17 03:37] MED LIST: ALEN70TA79 MT; AMLO10TA80 PO; ASPI-1497 PO; CHOL40002 PO; EZET10TA13 PO; FERR-71 PO; FERR325T30 PO; PRAV20TA57 PO; RAMI10CA68 PO
[2020-10-17] MEDS ORDERED: DIPHENHYDRAMINE 50MG/ML VIAL IV ONE (04:00)
[2020-10-17] MEDS ORDERED: EPINEPHRINE 1:1000 1 MG/ML AMP IM ONE (04:00)
[2020-10-17] MEDS ORDERED: FAMOTIDINE 20MG/2ML VIAL IV ONE (04:00)
[2020-10-17] MEDS ORDERED: SODIUM CHLORIDE 0.9% 1,000 ML IV ONE (04:00)
[2020-10-17] MEDS ORDERED: DEXAMETHASONE 10 MG/ML VIAL IV ONE (04:00)
[2020-10-17 04:43] LABS: BASOPHILS % 0.6 % (0.0-2.0); EOSINOPHILS % 0.7 % (0.0-5.0); HEMATOCRIT. 28.9 % (36.0-48.0); LYMPHOCYTES % 19.1 % (20.0-50.0); MEAN CORPUSCULAR HEMOGLOBIN 27.5 pg (28.0-32.0); MEAN CORPUSCULAR VOLUME 88.2 fL (81.0-99.0); MONOCYTES % 8.3 % (2.0-8.0); NEUTROPHILS % 71.3 % (40.0-76.0); PLATELET 178 x1000/uL (130-400); RED BLOOD CELL COUNT 3.27 mill/uL (4.2-5.4); RED CELL DISTRIBUTION WIDTH 16.9 % (11.6-14.6)
[2020-10-17 04:50] LABS: CHLORIDE 117 mEq/L (98-107)
[2020-10-17] MEDS ORDERED: PNEUMOCOCCAL 23-VAL P-SAC VAC 0.5 ML IM ONE (09:15)
[2020-10-17] MEDS ORDERED: ONDANSETRON HCL 4MG/2ML INJ IV PRN (10:30)
[2020-10-17] MEDS ORDERED: DIPHENHYDRAMINE 50MG/ML VIAL IV PRN (10:30)
[2020-10-17] MEDS ORDERED: ACETAMINOPHEN 325MG TABLET PO PRN (10:30)
[2020-10-17] MEDS ORDERED: FAMOTIDINE 20MG/2ML VIAL IV SCH (11:00)
[2020-10-17] MEDS: METHYLPREDNISOLONE SOD SUCC 40 MG/ML VIAL IV SCH ×2 (11:52→18:59)
[2020-10-17] MEDS ORDERED: CLONIDINE 0.1MG TABLET PO PRN (15:30)
[2020-10-17] MEDS: BENZONATATE 100MG CAPSULE PO PRN (18:00)
[2020-10-17] MEDS: FAMOTIDINE 20MG/2ML VIAL IV SCH (21:03)
[2020-10-18] VITALS (12 sets, daily range): BP systolic 124–160; BP diastolic 69–104
[2020-10-18] MEDS: METHYLPREDNISOLONE SOD SUCC 40 MG/ML VIAL IV SCH ×3 (03:45→18:13)
[2020-10-18 05:58] LABS: BASOPHILS % 0.1 % (0.0-2.0); HEMATOCRIT. 25.6 % (36.0-48.0); HEMOGLOBIN. 7.9 g/dL (12.0-16.0); LYMPHOCYTES % 7.9 % (20.0-50.0); MEAN CORPUSCULAR HEMOGLOBIN 27.2 pg (28.0-32.0); MEAN CORPUSCULAR VOLUME 88.4 fL (81.0-99.0); MEAN PLATELET VOLUME 9.7 fl (7.4-10.4); MONOCYTES % 2.5 % (2.0-8.0); NEUTROPHILS % 89.5 % (40.0-76.0); PLATELET 188 x1000/uL (130-400); RED BLOOD CELL COUNT 2.89 mill/uL (4.2-5.4)
[2020-10-18] MEDS: AMLODIPINE 10MG TABLET PO SCH (08:30)
[2020-10-18] MEDS: FAMOTIDINE 20MG/2ML VIAL IV SCH ×2 (08:30→20:38)
[2020-10-18] MEDS: BENZONATATE 100MG CAPSULE PO PRN ×2 (09:46→18:14)
[2020-10-18] MEDS ORDERED: SODIUM POLYSTYRENE SULFONATE 15 G/60 ML BOT PO SCH (10:00)
[2020-10-19] VITALS (8 sets, daily range): BP systolic 135–162; BP diastolic 83–93
[2020-10-19] MEDS: METHYLPREDNISOLONE SOD SUCC 40 MG/ML VIAL IV SCH ×2 (03:10→11:08)
[2020-10-19] MEDS: FAMOTIDINE 20MG/2ML VIAL IV SCH (08:24)
[2020-10-19] MEDS: AMLODIPINE 10MG TABLET PO SCH (08:25)
[2020-10-19 08:38] LABS: HEMATOCRIT. 23.6 % (36.0-48.0); HEMOGLOBIN. 7.5 g/dL (12.0-16.0); MEAN CORPUSCULAR HEMOGLOBIN 27.6 pg (28.0-32.0); MEAN CORPUSCULAR VOLUME 87.2 fL (81.0-99.0); MEAN PLATELET VOLUME 10.1 fl (7.4-10.4); PLATELET 215 x1000/uL (130-400)
[2020-10-19 09:28] LABS: PHOSPHORUS 5.2 mg/dL (2.5-4.9)
[2020-10-19] MEDS ORDERED: FAMOTIDINE 20MG/2ML VIAL IV SCH (11:15)
[2020-10-19 15:15] LABS: PLATELET ESTIMATE NORMAL
== END 2020-10-19 14:05 | disposition home or self-care (01) | DRG 915 ==
LOC: ER 03:37 → 3WST 05:31 → ENRESERV 07:10
PROVIDERS: ADMIT Internal Medicine; ATTEND Internal Medicine
DX: T78.3XXA Angioneurotic edema, initial encounter (principal); I50.43 Acute on chronic combined systolic (congestive) and diastolic (congestive) heart failure; N17.9 Acute kidney failure, unspecified; I13.2 Hypertensive heart and chronic kidney disease with heart failure and with stage 5 chronic kidney disease, or end stage renal disease; N18.5 Chronic kidney disease, stage 5; Z88.6 Allergy status to analgesic agent; D64.9 Anemia, unspecified; E11.22 Type 2 diabetes mellitus with diabetic chronic kidney disease; E87.5 Hyperkalemia; E87.8 Other disorders of electrolyte and fluid balance, not elsewhere classified; F17.210 Nicotine dependence, cigarettes, uncomplicated; I48.91 Unspecified atrial fibrillation; J44.9 Chronic obstructive pulmonary disease, unspecified; R13.10 Dysphagia, unspecified; Z79.82 Long term (current) use of aspirin; Z79.899 Other long term (current) drug therapy; Z88.0 Allergy status to penicillin; Z88.8 Allergy status to other drugs, medicaments and biological substances; Z91.018 Allergy to other foods; Z71.6 Tobacco abuse counseling
CPT/HCPCS: 36415; 71045; 76770; 80048; 80053; 82570; 82962; 83935; 84100; 84133; 85025; 90732; 93005; 99291; J1100; J1200; J2920; J3490; J7030

== ENCOUNTER 2025-04-25 13:00 | Inpatient (IN) | payer BC, MEDICAID, MEDICARE ==
[~2025-04-25] VITALS: Ht 175.3 cm; Wt 95.3 kg
[~2025-04-25 13:00] MED LIST changes: -EZET10TA13 PO; +EZET10TA81 PO; -RAMI10CA68 PO; +RAMI10CA75 PO
[2025-04-25 13:03] VITALS: O2SAT 96
[2025-04-25 13:37] LABS: BASOPHILS % 0.8 % (0.0-2.0); EOSINOPHILS % 2.0 % (0.0-5.0); HEMATOCRIT. 32.8 % (36.0-48.0); HEMOGLOBIN. 10.5 g/dL (12.0-16.0); LYMPHOCYTES % 16.3 % (20.0-50.0); MEAN PLATELET VOLUME 8.1 fl (7.4-10.4); MONOCYTES % 5.2 % (2.0-8.0); NEUTROPHILS % 75.7 % (40.0-76.0); PLATELET 244 x1000/uL (130-400); RED BLOOD CELL COUNT 3.49 mill/uL (4.2-5.4); RED CELL DISTRIBUTION WIDTH 15.3 % (11.6-14.6)
[2025-04-25 13:58] LABS: TROPONIN I HIGH SENSITIVITY 7 ng/L (3.0-34); UREA NITROGEN BLOOD 69 mg/dL (9-23)
[2025-04-25 14:00] LABS: ASPARTATE AMINOTRANSFERASE 12 IU/L (<34); BILIRUBIN DIRECT 0.2 mg/dL (<=3.0); BILIRUBIN TOTAL 0.5 mg/dL (0.1-1.0); CREATININE 16.8 mg/dL (0.6-1.0); PROTEIN TOTAL 7.7 g/dL (6.0-8.3)
[2025-04-25 17:00] VITALS: BP 129/69; PULSE 78; RESP 18; TEMP 36.4; O2SAT 97
[2025-04-25 17:27] VITALS: BP 129/69; PULSE 78; RESP 18; TEMP 36.4736
[2025-04-25 20:00] VITALS: BP_SYST 131; BP_SYST 136; BP_DIAS 66; BP_DIAS 79; PULSE 73; PULSE 84; RESP 18; TEMP 35.7; TEMP 36.5; O2SAT 95
[2025-04-25] MEDS ORDERED: DEXTROSE 50% WATER 50ML SYRINGE IV PRN (23:00)
[2025-04-26] VITALS (13 sets, daily range): BP systolic 92–150; BP diastolic 64–85; PULSE 76–91; RESP 17–19; TEMP 36.3918–36.7; O2SAT 84–100
[2025-04-26] MEDS: HYDROCODONE/ACETAMINOPHEN 5/325MG TABLET PO PRN (00:22)
[2025-04-26 01:21] LABS: CREATININE 17.4 mg/dL (0.6-1.0); UREA NITROGEN BLOOD 78.0 mg/dL (9-23)
[2025-04-26 06:21] LABS: BASOPHILS % 0.5 % (0.0-2.0); EOSINOPHILS % 2.0 % (0.0-5.0); HEMATOCRIT. 30.4 % (36.0-48.0); HEMOGLOBIN. 9.7 g/dL (12.0-16.0); LYMPHOCYTES % 19.2 % (20.0-50.0); MEAN PLATELET VOLUME 9.4 fl (7.4-10.4); MONOCYTES % 6.4 % (2.0-8.0); NEUTROPHILS % 71.9 % (40.0-76.0); PLATELET 216 x1000/uL (130-400); RED BLOOD CELL COUNT 3.25 mill/uL (4.2-5.4); RED CELL DISTRIBUTION WIDTH 15.1 % (11.6-14.6)
[2025-04-26 06:29] LABS: INR 1.0
[2025-04-26 06:32] LABS: UREA NITROGEN BLOOD 80.0 mg/dL (9-23)
[2025-04-26 06:33] LABS: CREATININE 17.5 mg/dL (0.6-1.0)
[2025-04-26 06:34] LABS: PHOSPHORUS 7.9 mg/dL (2.5-4.9)
[2025-04-26] MEDS: BLOOD SUGAR DIAGNOSTIC STRIP TEST SCH (06:45)
[2025-04-26 07:25] LABS: HEPATITIS C AB NON REACTIVE (Neg) (Negative)
[2025-04-26] MEDS ORDERED: LIDOCAINE HCL 1% 10 MG/ML 10ML VIAL ONE ×2 (07:29→09:44)
[2025-04-26] MEDS: INSULIN LISPRO 100 UNITS/ML SUBCUT SCH (07:50)
[2025-04-26] MEDS: DOCUSATE SODIUM 100MG CAPSULE PO SCH (09:00)
[2025-04-26] MEDS ORDERED: ACETAMINOPHEN 325MG TABLET PO PRN ×2 (11:45)
[2025-04-26] MEDS ORDERED: IPRATROPIUM/ALBUTEROL 0.5-3(2.5)MG/3ML NEB HHN PRN (11:45)
[2025-04-26] MEDS: CALCIUM ACETATE 667MG CAPSULE PO SCH (18:15)
[2025-04-26] MEDS: ATORVASTATIN CALCIUM 20MG TABLET PO SCH (21:23)
[2025-04-26] MEDS: EPOETIN ALFA-EPBX 4,000 UNITS/ML VIAL SUBCUT SCH (21:23)
[2025-04-27] VITALS: BP 123/83; PULSE 83; RESP 18; TEMP 36.6; O2SAT 96
[2025-04-27 04:00] VITALS: BP 154/82; PULSE 83; RESP 18; TEMP 36.7; O2SAT 97
[2025-04-27 05:58] LABS: BASOPHILS % 0.5 % (0.0-2.0); EOSINOPHILS % 1.5 % (0.0-5.0); HEMATOCRIT. 31.2 % (36.0-48.0); HEMOGLOBIN. 10.0 g/dL (12.0-16.0); LYMPHOCYTES % 16.3 % (20.0-50.0); MEAN PLATELET VOLUME 9.4 fl (7.4-10.4); MONOCYTES % 6.7 % (2.0-8.0); NEUTROPHILS % 75.0 % (40.0-76.0); PLATELET 191 x1000/uL (130-400); RED BLOOD CELL COUNT 3.33 mill/uL (4.2-5.4); RED CELL DISTRIBUTION WIDTH 15.2 % (11.6-14.6)
[2025-04-27 06:30] LABS: UREA NITROGEN BLOOD 43.0 mg/dL (9-23)
[2025-04-27 06:45] LABS: CREATININE 11.5 mg/dL (0.6-1.0)
[2025-04-27 08:00] VITALS: BP 116/73; PULSE 81; RESP 18; TEMP 36.6; O2SAT 93
[2025-04-27] MEDS ORDERED: AMLODIPINE 10MG TABLET PO SCH (09:00)
[2025-04-27] MEDS ORDERED: FERROUS SULFATE 325MG TABLET PO SCH (09:00)
[2025-04-27] MEDS ORDERED: EZETIMIBE 10MG TABLET PO SCH (09:00)
[2025-04-27] MEDS: AMLODIPINE 5MG TABLET PO SCH (09:27)
[2025-04-27] MEDS: ASPIRIN 81MG EC TABLET PO SCH (09:27)
[2025-04-27] MEDS: FOLIC ACID/VITAMIN B COMP W-C TABLET PO SCH (09:27)
[2025-04-27] MEDS ORDERED: CALC667C PO (09:44)
[2025-04-27] MEDS ORDERED: AMLO5TAB88 PO (09:44)
[2025-04-27 12:00] VITALS: BP 135/84; PULSE 82; RESP 18; TEMP 36.5; O2SAT 97
[2025-04-27] MEDS ORDERED: NALOXONE HCL 0.4MG/ML VIAL IV PRN (12:15)
[2025-04-27] MEDS: ENOXAPARIN 40MG/0.4ML SYR SUBCUT SCH (15:24)
[2025-04-27 16:00] VITALS: BP 123/66; PULSE 94; RESP 18; TEMP 36.6; O2SAT 97
[2025-04-27 20:00] VITALS: BP 157/90; PULSE 79; RESP 18; TEMP 36.9; O2SAT 98
[2025-04-27] MEDS: ONDANSETRON HCL 4MG/2ML INJ IV PRN (20:59)
[2025-04-28] VITALS (21 sets, daily range): BP systolic 109–161; BP diastolic 66–89; PULSE 76–87; RESP 13–19; TEMP 36.7–37.1; O2SAT 96–98
[2025-04-28] MEDS ORDERED: IOHEXOL-300 100 ML BOTTLE ONE (12:43)
[2025-04-28] MEDS ORDERED: LIDOCAINE HCL 1% 10 MG/ML 10ML VIAL ONE ×2 (12:44→14:19)
[2025-04-28] MEDS ORDERED: FENTANYL CITRATE/PF 50MCG/ML 2ML VIAL ONE (13:23)
[2025-04-28] MEDS ORDERED: ALTEPLASE 2MG/VIAL ITC ONE (13:45)
[2025-04-28] MEDS ORDERED: HEPARIN 1000 UNITS/ML 10ML ONE (13:59)
[2025-04-28] MEDS: FENTANYL CITRATE/PF 50MCG/ML 2ML VIAL IV SCH (14:52)
[2025-04-28] MEDS ORDERED: HEPARIN 1000 UNITS/ML 10ML IV SCH (15:00)
[2025-04-29] VITALS (15 sets, daily range): BP systolic 122–166; BP diastolic 76–92; PULSE 80–95; RESP 14–19; TEMP 36–36.61404; O2SAT 20–99
[2025-04-29 07:20] LABS: BASOPHILS % 0.4 % (0.0-2.0); EOSINOPHILS % 2.3 % (0.0-5.0); HEMATOCRIT. 29.9 % (36.0-48.0); HEMOGLOBIN. 9.9 g/dL (12.0-16.0); LYMPHOCYTES % 14.2 % (20.0-50.0); MEAN PLATELET VOLUME 9.4 fl (7.4-10.4); MONOCYTES % 4.2 % (2.0-8.0); NEUTROPHILS % 78.9 % (40.0-76.0); PLATELET 192 x1000/uL (130-400); RED BLOOD CELL COUNT 3.26 mill/uL (4.2-5.4); RED CELL DISTRIBUTION WIDTH 14.9 % (11.6-14.6)
[2025-04-29 07:48] LABS: UREA NITROGEN BLOOD 58.0 mg/dL (9-23)
[2025-04-29 07:50] LABS: PHOSPHORUS 6.6 mg/dL (2.5-4.9)
[2025-04-29 08:20] LABS: CREATININE 14.0 mg/dL (0.6-1.0)
[2025-04-29] MEDS: CLONIDINE 0.1MG TABLET PO PRN (21:38)
[2025-04-30 08:00] VITALS: BP 138/78; PULSE 76; RESP 18; TEMP 36.3; O2SAT 95
[2025-04-30 10:37] LABS: HEMATOCRIT. 27.8 % (36.0-48.0); HEMOGLOBIN. 8.9 g/dL (12.0-16.0); LYMPHOCYTES % 11.4 % (20.0-50.0); MEAN PLATELET VOLUME 8.9 fl (7.4-10.4); MONOCYTES % 3.3 % (2.0-8.0); NEUTROPHILS % 82.4 % (40.0-76.0); PLATELET 217 x1000/uL (130-400); RED BLOOD CELL COUNT 2.98 mill/uL (4.2-5.4); RED CELL DISTRIBUTION WIDTH 15.3 % (11.6-14.6)
[2025-04-30 10:38] LABS: BASOPHILS % 0.4 % (0.0-2.0); EOSINOPHILS % 2.5 % (0.0-5.0)
[2025-04-30 10:56] LABS: UREA NITROGEN BLOOD 65.0 mg/dL (9-23)
[2025-04-30 11:07] LABS: CREATININE 14.5 mg/dL (0.6-1.0)
[2025-04-30 12:00] VITALS: BP 140/77; PULSE 79; RESP 18; TEMP 36.4; O2SAT 96
[2025-04-30 16:00] VITALS: BP 138/79; PULSE 78; RESP 18; TEMP 36.6; O2SAT 96
[2025-04-30 20:00] VITALS: BP 158/93; PULSE 94; RESP 18; TEMP 36.4; O2SAT 97
[2025-05-01] VITALS (25 sets, daily range): BP systolic 100–179; BP diastolic 63–114; PULSE 80–105; RESP 14–22; TEMP 36–36.6; O2SAT 96–99
[2025-05-01] MEDS: FAMOTIDINE 20MG TABLET PO SCH (03:06)
[2025-05-01 07:17] LABS: BASOPHILS % 0.4 % (0.0-2.0); EOSINOPHILS % 2.5 % (0.0-5.0); HEMATOCRIT. 26.6 % (36.0-48.0); HEMOGLOBIN. 8.8 g/dL (12.0-16.0); LYMPHOCYTES % 16.8 % (20.0-50.0); MEAN PLATELET VOLUME 9.4 fl (7.4-10.4); MONOCYTES % 5.4 % (2.0-8.0); NEUTROPHILS % 74.9 % (40.0-76.0); PLATELET 214 x1000/uL (130-400); RED BLOOD CELL COUNT 2.90 mill/uL (4.2-5.4); RED CELL DISTRIBUTION WIDTH 15.0 % (11.6-14.6)
[2025-05-01 07:30] LABS: UREA NITROGEN BLOOD 72.0 mg/dL (9-23)
[2025-05-01 08:41] LABS: CREATININE 15.0 mg/dL (0.6-1.0)
[2025-05-01] MEDS: SODIUM ZIRCONIUM CYCLOSILICATE 10GM/PACKET PO SCH ×2 (10:51→14:24)
[2025-05-01] MEDS ORDERED: LIDOCAINE HCL 1% 20ML VIAL ONE (14:23)
[2025-05-01] MEDS ORDERED: HEPARIN 1000 UNITS/ML 10ML ONE (14:23)
[2025-05-01] MEDS ORDERED: IOHEXOL-300 50 ML BOTTLE IV ONE (15:54)
[2025-05-01 22:24] LABS: UREA NITROGEN BLOOD 67.0 mg/dL (9-23)
[2025-05-01 22:49] LABS: CREATININE 15.1 mg/dL (0.6-1.0)
[2025-05-02] VITALS: BP 144/95; PULSE 105; RESP 18; TEMP 36.2; O2SAT 98
[2025-05-02 04:00] VITALS: BP 147/86; PULSE 108; RESP 20; TEMP 36.6; O2SAT 100
[2025-05-02 06:31] LABS: HEMATOCRIT. 29.5 % (36.0-48.0); HEMOGLOBIN. 9.7 g/dL (12.0-16.0); MEAN PLATELET VOLUME 9.2 fl (7.4-10.4); PLATELET 239 x1000/uL (130-400); RED BLOOD CELL COUNT 3.16 mill/uL (4.2-5.4); RED CELL DISTRIBUTION WIDTH 15.3 % (11.6-14.6)
[2025-05-02 06:41] LABS: UREA NITROGEN BLOOD 31.0 mg/dL (9-23)
[2025-05-02 06:42] LABS: CREATININE 10.0 mg/dL (0.6-1.0)
[2025-05-02 08:00] VITALS: PULSE 78
[2025-05-02 12:00] VITALS: BP 143/88; PULSE 77; RESP 18; TEMP 36.7; O2SAT 96
[2025-05-02 16:00] VITALS: BP 138/77; PULSE 89; RESP 20; TEMP 36.6; O2SAT 98
[2025-05-02 17:01] LABS: BAND% 9.0 % (1.0-6.0); LYMPHOCYTES % MANUAL 3.0 % (20.0-60.0); MONOCYTES % MANUAL 3.0 % (2.0-8.0); NEUTROPHILS % MANUAL 85.0 % (45.0-75.0)
[2025-05-02 17:02] LABS: PLATELET ESTIMATE NORMAL
[2025-05-02 20:00] VITALS: BP 160/99; PULSE 99; RESP 20; TEMP 36.9; O2SAT 98
[2025-05-03] VITALS (12 sets, daily range): BP systolic 111–168; BP diastolic 63–95; PULSE 81–105; RESP 17–20; TEMP 36.2–36.7; O2SAT 94–99
[2025-05-03] MEDS: FAMOTIDINE 20MG TABLET PO SCH (08:54)
[2025-05-03] MEDS ORDERED: FAMOTIDINE 20MG TABLET PO SCH (09:00)
[2025-05-03 09:14] LABS: BASOPHILS % 0.6 % (0.0-2.0); EOSINOPHILS % 2.5 % (0.0-5.0); HEMATOCRIT. 26.7 % (36.0-48.0); HEMOGLOBIN. 8.7 g/dL (12.0-16.0); LYMPHOCYTES % 17.0 % (20.0-50.0); MEAN PLATELET VOLUME 8.6 fl (7.4-10.4); MONOCYTES % 7.1 % (2.0-8.0); NEUTROPHILS % 72.8 % (40.0-76.0); PLATELET 229 x1000/uL (130-400); RED BLOOD CELL COUNT 2.86 mill/uL (4.2-5.4); RED CELL DISTRIBUTION WIDTH 15.4 % (11.6-14.6)
[2025-05-03 09:44] LABS: UREA NITROGEN BLOOD 53.0 mg/dL (9-23)
[2025-05-03 09:47] LABS: PHOSPHORUS 6.8 mg/dL (2.5-4.9)
[2025-05-03 09:50] LABS: CREATININE 12.7 mg/dL (0.6-1.0)
== END 2025-05-03 20:41 | DRG 252 ==
LOC: ER 13:00 → 6WST 15:38 → EDBEDREQ 15:45 → EDBEDREQTM 15:45 → ENRESERV 16:18
PROVIDERS: ADMIT Internal Medicine; ATTEND Internal Medicine
PROC: 06HY33Z Insertion of Infusion Device into Lower Vein, Percutaneous Approach (ICD-10-PCS; principal; 2025-04-26)
PROC: 5A1D70Z Performance of Urinary Filtration, Intermittent, Less than 6 Hours Per Day (ICD-10-PCS; 2025-04-26)
PROC: 037Y3ZZ Dilation of Upper Artery, Percutaneous Approach (ICD-10-PCS; 2025-04-28)
PROC: 3E03317 Introduction of Other Thrombolytic into Peripheral Vein, Percutaneous Approach (ICD-10-PCS; 2025-04-28)
PROC: 5A1D70Z Performance of Urinary Filtration, Intermittent, Less than 6 Hours Per Day (ICD-10-PCS; 2025-04-29)
PROC: 5A1D70Z Performance of Urinary Filtration, Intermittent, Less than 6 Hours Per Day (ICD-10-PCS; 2025-05-01)
PROC: 0JH63XZ Insertion of Tunneled Vascular Access Device into Chest Subcutaneous Tissue and Fascia, Percutaneous Approach (ICD-10-PCS; 2025-05-02)
PROC: 02H633Z Insertion of Infusion Device into Right Atrium, Percutaneous Approach (ICD-10-PCS; 2025-05-02)
PROC: B548ZZA Ultrasonography of Superior Vena Cava, Guidance (ICD-10-PCS; 2025-05-02)
PROC: B5181ZA Fluoroscopy of Superior Vena Cava using Low Osmolar Contrast, Guidance (ICD-10-PCS; 2025-05-02)
PROC: 5A1D70Z Performance of Urinary Filtration, Intermittent, Less than 6 Hours Per Day (ICD-10-PCS; 2025-05-03)
DX: T82.590A Other mechanical complication of surgically created arteriovenous fistula, initial encounter (principal); N18.6 End stage renal disease; I13.2 Hypertensive heart and chronic kidney disease with heart failure and with stage 5 chronic kidney disease, or end stage renal disease; I82.C11 Acute embolism and thrombosis of right internal jugular vein; T82.868A Thrombosis due to vascular prosthetic devices, implants and grafts, initial encounter; M17.12 Unilateral primary osteoarthritis, left knee; I50.9 Heart failure, unspecified; E87.5 Hyperkalemia; E11.22 Type 2 diabetes mellitus with diabetic chronic kidney disease; S82.831A Other fracture of upper and lower end of right fibula, initial encounter for closed fracture; E78.5 Hyperlipidemia, unspecified; F17.210 Nicotine dependence, cigarettes, uncomplicated; I48.91 Unspecified atrial fibrillation; J44.9 Chronic obstructive pulmonary disease, unspecified; E21.3 Hyperparathyroidism, unspecified; G62.9 Polyneuropathy, unspecified; K21.9 Gastro-esophageal reflux disease without esophagitis; D64.9 Anemia, unspecified; W18.39XA Other fall on same level, initial encounter; Y83.2 Surgical operation with anastomosis, bypass or graft as the cause of abnormal reaction of the patient, or of later complication, without mention of misadventure at the time of the procedure; Z55.6 Problems related to health literacy; Z79.82 Long term (current) use of aspirin; Z79.84 Long term (current) use of oral hypoglycemic drugs; Z79.899 Other long term (current) drug therapy; Z82.49 Family history of ischemic heart disease and other diseases of the circulatory system; Z88.0 Allergy status to penicillin; Z88.5 Allergy status to narcotic agent; Z88.6 Allergy status to analgesic agent; Z88.8 Allergy status to other drugs, medicaments and biological substances; Z91.199 Patient's noncompliance with other medical treatment and regimen due to unspecified reason; Z99.2 Dependence on renal dialysis; Y93.89 Activity, other specified; Y92.89 Other specified places as the place of occurrence of the external cause; Y99.8 Other external cause status
CPT/HCPCS: 36415; 36556; 36558; 36905; 71045; 73600; 76937; 77001; 80048; 80076; 82962; 83036; 83880; 84100; 84484; 85025; 86705; 87340; 87426; 90935; 93005; 97161; 97530; 99285; A4606; C1725; C1752; C1757; C1766; C1769; C1887; J0885; J1644; J1650; J2003; J2405; J2997; J3010; L8514; Q9967